=== PATIENT | female | born 1985 | race Caucasian/White ===

== ENCOUNTER 2019-03-22 07:37 | Emergency (ER) | payer OTHER ==
[2019-03-22 08:13] LABS: BILIRUBIN,URINE NEGATIVE (NEGATIVE); GLUCOSE, URINE (UA) NEGATIVE (NEGATIVE); KETONES,URINE (UA) NEGATIVE (NEGATIVE); LEUKOCYTE ESTERASE, URINE SMALL (NEGATIVE); NITRITE,URINE NEGATIVE (NEGATIVE); OCCULT BLOOD,URINE NEGATIVE (NEGATIVE); PH,URINE 6.5 PH (5.0-7.5); PROTEIN,URINE NEGATIVE (NEGATIVE); UROBILINOGEN,URINE 0.2 (NORMAL) E.U./dL (NORMAL)
[2019-03-22 08:14] LABS: CLARITY,URINE CLEAR (CLEAR); HCG UR QUAL NEGATIVE
[2019-03-22 08:27] LABS: BASOPHILS % (AUTO) 0.7 %; EOSINOPHILS # (AUTO) 0.1 10^3/uL (0.0-0.7); EOSINOPHILS % (AUTO) 1.2 %; HGB - HEMOGLOBIN 14.5 g/dL (12.0-16.0); LYMPHOCYTES # (AUTO) 1.9 10^3/uL (1.5-3.5); LYMPHOCYTES % (AUTO) 31.2 %; MEAN CORPUSCULAR HGB CONC 33.1 g/dL (32.0-36.0); MEAN CORPUSCULAR VOLUME 90.5 fL (81.0-99.0); MEAN PLATELET VOLUME 9.2 fL (7.9-10.8); MONOCYTES # (AUTO) 0.3 10^3/uL (0.0-1.0); MONOCYTES % (AUTO) 5.5 %; NEUTROPHILS # (AUTO) 3.7 10^3/uL (1.5-6.6); NEUTROPHILS % (AUTO) 61.2 %; PLT - PLATELET COUNT 243 10^3/uL (130-450); RED BLOOD COUNT 4.84 10^6/uL (4.20-5.40); RED CELL DISTRIBUTION WIDTH 12.6 % (12.0-15.0)
[2019-03-22 08:28] LABS: ALBUMIN 4.2 g/dL (3.2-5.5); ALBUMIN/GLOBULIN RATIO 1.4 (1.0-2.2); BILIRUBIN,TOTAL 0.6 mg/dL (0.2-1.0); CALCIUM 8.7 mg/dL (8.5-10.3); CREATININE 0.8 mg/dL (0.4-1.0); TOTAL PROTEIN 7.3 g/dL (6.7-8.2)
[2019-03-22 08:31] LABS: BACTERIA,URINE Few /HPF (None Seen); RBC,URINE 0-5 /HPF (0-5); SQUAMOUS EPITHELIAL CELL,UR MOD Squamous (<= Few)
--- NOTE | 2019-03-22 08:50 | ED Physician Documentation ---
PD HPI ABD PAIN - Stated complaint Stated Complaint: BACK/ABD PX - Chief complaint Chief Complaint: Abd Pain - History obtained from History obtained from: Patient - History of Present Illness Timing - onset: How many hours ago (2-3), Today Timing - duration: Hours (2-3) Timing - details: Abrupt onset, Still present Quality: Cramping, Aching, Pain Location: RLQ Radiation: Right flank Improved by: No: Eating, Laying still, Position Worsened by: Moving. No: Eating, Breathing, Palpation Associated symptoms: Nausea. No: Fever, Vomiting, Diarrhea, Dysuria, Vaginal bleeding Similar symptoms before: Has not had sx before Recently seen: Not recently seen Review of Systems Constitutional: denies: Fever, Chills, Myalgias Nose: denies: Rhinorrhea / runny nose, Congestion Throat: denies: Sore throat Respiratory: denies: Cough GI: reports: Nausea. denies: Vomiting, Diarrhea Musculoskeletal: reports: Back pain. 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 - Present Medications Home Medications: Ambulatory Orders Medication Instructions Recorded Confirmed Levothyroxine [Synthroid] 125 mcg PO QDAC 03/22/19 03/22/19 Ondansetron Odt [Zofran] 4 mg TL Q6H PRN #15 tablet 03/22/19 Oxycodone HCl/Acetaminophen 1 - 2 each PO Q6H PRN #25 tablet 03/22/19 [Percocet 5-325 mg Tablet] Tamsulosin [Flomax] 0.4 mg PO DAILY #5 capsule 03/22/19 dexAMETHasone [Decadron] 4 mg PO DAILY #5 tablet 03/22/19 - Allergies Allergies/Adverse Reactions: Allergies Allergy/AdvReac Type Severity Reaction Status Date / Time No Known Drug Allergies Allergy Verified 03/22/19 07:49 PD ED PE NORMAL - Vitals Vital signs reviewed: Yes - General General: Alert and oriented X 3, Well developed/nourished, Other (appears in considerable pain. Lying on side. ) - Neck Neck: Supple, no meningeal sign, No adenopathy - Cardiac Cardiac: RRR, No murmur - Respiratory Respiratory: Clear bilaterally - Abdomen Abdomen: Normal bowel sounds, Soft, Non distended, No organomegaly, Other (tender lower abd right side with right CVA tenderness as well. ) - Female Female : Deferred - Rectal Rectal: Deferred - Back Back: No spinal TTP - Derm Derm: Normal color, Warm and dry - Extremities Extremities: No tenderness to palpate, Normal ROM s pain, No edema, No calf tenderness / cord - Neuro Neuro: Alert and oriented X 3, No motor deficit, Normal speech Results - Vitals Vitals: Vital Signs - 24 hr 03/22/19 03/22/19 03/22/19 07:47 09:49 11:25 Temperature 36.3 C L Heart Rate 76 57 L 72 Respiratory 20 16 18 Rate Blood Pressure 109/90 H 104/63 105/68 O2 Saturation 100 100 100 Oxygen O2 Source Room air - Labs Labs: Laboratory Tests 03/22/19 03/22/19 03/22/19 08:00 08:10 08:10 WBC 6.0 RBC 4.84 Hgb 14.5 Hct 43.8 MCV 90.5 MCH 30.0 MCHC 33.1 RDW 12.6 Plt Count 243 MPV 9.2 Neut # (Auto) 3.7 Lymph # (Auto) 1.9 [place] # (Auto) 0.3 Eos # (Auto) 0.1 Baso # (Auto) 0.0 Absolute Nucleated RBC 0.00 Nucleated RBC % 0.0 Sodium 139 Potassium 3.9 Chloride 106 Carbon Dioxide 26 Anion Gap 7.0 BUN 13 Creatinine 0.8 Estimated GFR (MDRD) 83 L Glucose 101 H Calcium 8.7 Total Bilirubin 0.6 AST 17 ALT 18 Alkaline Phosphatase 52 Total Protein 7.3 Albumin 4.2 Globulin 3.1 Albumin/Globulin Ratio 1.4 Lipase 40 Urine Color YELLOW Urine Clarity CLEAR Urine pH 6.5 Ur Specific [place] 1.020 Urine Protein NEGATIVE Urine Glucose (UA) NEGATIVE Urine Ketones NEGATIVE Urine Occult Blood NEGATIVE Urine Nitrite NEGATIVE Urine Bilirubin NEGATIVE Urine Urobilinogen 0.2 (NORMAL) Ur Leukocyte Esterase SMALL H Urine RBC 0-5 Urine WBC 0-3 Ur Squamous Epith Cells MOD Squamous H Urine Bacteria Few Ur Microscopic Review INDICATED Urine Culture Comments NOT INDICATED Urine HCG, Qual NEGATIVE - Rads (name of study) KUB CT Radiology: Prelim report reviewed (4 mm stone at UVJ with mild/mod hydronephrosis. ), See rad report PD MEDICAL DECISION MAKING - ED course Complexity details: re-evaluated patient (much improved with IV fluids and meds. ), considered differential (kidney stone vs ovarian cyst or torsion, or free fluid. Can get labs and CT. ), d/w patient Departure - Departure Disposition: 01 Home, Self Care Clinical Impression: Ureterolithiasis Condition: Stable Record reviewed to determine appropriate education?: Yes Instructions: ED Stone Renal W Colic Follow-Up: VITA WATSON [Primary Care Provider] - Vern Arrieta MD [Provider Admit Priv/Credential] - Prescriptions: dexAMETHasone [Decadron] 4 mg PO DAILY #5 tablet Ondansetron Odt [Zofran] 4 mg TL Q6H PRN #15 tablet PRN Reason: Nausea / Vomiting Oxycodone HCl/Acetaminophen [Percocet 5-325 mg Tablet] 1 - 2 each PO Q6H PRN #25 tablet PRN Reason: pain Tamsulosin [Flomax] 0.4 mg PO DAILY #5 capsule Comments: Stay well-hydrated. Rest today. Activity as tolerated. Anti-inflammatories such as naproxen or ibuprofen 2-3 times daily. Decadron steroid for inflammation as well daily for the next several days. Tamsulosin it tries to reduce the spasm of the ureter and promote better passage of the stone. Add Tylenol or Percocet as needed for pains. Follow-up with your primary care or Urology if not improved well over the next few days. Return to the ER if severe pain again despite medication. Discharge Date/Time: 03/22/19 12:05
[2019-03-22] MEDS ORDERED: SODIUM CHLORIDE 0.9% 1,000 ML IV ONE (09:03)
[2019-03-22] MEDS ORDERED: ONDANSETRON 4 MG/2 ML VIAL IVP STA (09:03)
[2019-03-22] MEDS ORDERED: KETOROLAC 15 MG/ML VIAL IVP STA (09:03)
[2019-03-22] MEDS ORDERED: HYDROmorphone 1 MG/ML CARPUJECT IVP STA (09:03)
--- NOTE | 2019-03-22 10:09 | CT Report ---
Reason: Abrupt right flank to right lower AP, this morning Procedure Date: 03/22/2019 Accession Number: [id number] / [id number] Procedure: CT - Abdomen/Pelvis WO CPT Code: FULL RESULT: EXAM: CT ABDOMEN AND PELVIS (CT KUB) EXAM DATE: 03/22/2019 09:38 AM. CLINICAL HISTORY: Abrupt right flank to right lower AP this morning. COMPARISONS: None. TECHNIQUE: Routine axial helical CT imaging was performed through the abdomen and pelvis without IV contrast. Reconstructions: Coronal and sagittal. In accordance with CT protocol optimization, one or more of the following dose reduction techniques were utilized for this exam: automated exposure control, adjustment of mA and/or KV based on patient size, or use of iterative reconstructive technique. FINDINGS: Lung Bases: Unremarkable. Right Kidney/Ureter: No nephrolithiasis, hydronephrosis, or hydroureter. No perinephric fat stranding. There is a 3 mm calculus at or adjacent to the right UVJ. No phleboliths are identified elsewhere within the pelvis. Left Kidney/Ureter: No stones, hydronephrosis, or hydroureter. No perinephric fat stranding. Other Solid Organs: Noncontrast images of the solid organs are grossly unremarkable. Gallbladder/Bile Ducts: Unremarkable. Peritoneal Cavity: No free fluid, free air or lesley adenopathy. Bowel is grossly unremarkable. Pelvic Organs: No bladder stones or wall thickening. Noncontrast images of the visualized pelvic organs are unremarkable. Vasculature: Unremarkable. Other: None. IMPRESSION: 3 mm calculus at or adjacent to the right UVJ. No hydronephrosis or urinary collecting system calculi detected elsewhere. RADIA
[2019-03-22] MEDS ORDERED: LIDOCAINE-MPF 2% 4 ML in SODIUM CHLORIDE 0.9% 50 ML IV STA (10:27)
[2019-03-22 11:31] VITALS: BP 105/68
== END 2019-03-22 12:05 | disposition home or self-care (01) ==
LOC: ED 07:37
DX: N20.1 Calculus of ureter (principal)
CPT/HCPCS: 36415; 74176; 80053; 81001; 81025; 83690; 85025; 96361; 96365; 96375; 99284; J1170; J7040; 81003; 87086

== ENCOUNTER 2019-04-13 03:44 | Emergency (ER) | payer OTHER ==
[2019-04-13 03:56] VITALS: BP 126/88
--- NOTE | 2019-04-13 04:00 | ED Physician Documentation ---
PD HPI URI - Stated complaint Stated Complaint: SWOLLEN THROAT - Chief complaint Chief Complaint: Heent - History obtained from History obtained from: Patient - History of Present Illness Timing - onset: Yesterday Timing duration: Days (1) Associated symptoms: Fever, Sore throat, Swollen nodes. No: Nasal congestion, Dry cough, Dyspnea (feeling of unable to swallow and is spitting up saliva, but no dyspnea.) Contributing factors: No: Immunocompromised Similar symptoms before: Diagnosis (strep tonsillitis in the past, with similar. 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 - Past Surgical History Past Surgical History: No - Present Medications Home Medications: Ambulatory Orders Medication Instructions Recorded Confirmed Levothyroxine [Synthroid] 125 mcg PO QDAC 03/22/19 03/22/19 Ondansetron Odt [Zofran] 4 mg TL Q6H PRN #15 tablet 03/22/19 Oxycodone HCl/Acetaminophen 1 - 2 each PO Q6H PRN #25 tablet 03/22/19 [Percocet 5-325 mg Tablet] Tamsulosin [Flomax] 0.4 mg PO DAILY #5 capsule 03/22/19 dexAMETHasone [Decadron] 4 mg PO DAILY #5 tablet 03/22/19 Cephalexin [Keflex] 500 mg PO Q6H #28 capsule 04/13/19 Diphenhydramine HCl [Allergy 12.5 mg PO Q6H PRN #120 ml 04/13/19 Relief] Hydrocodone/Acetaminophen [[place] 1 each PO Q6H PRN #15 tablet 04/13/19 5-325 Tablet] dexAMETHasone [Decadron] 4 mg PO DAILY #5 tablet 04/13/19 - Allergies Allergies/Adverse Reactions: Allergies Allergy/AdvReac Type Severity Reaction Status Date / Time No Known Drug Allergies Allergy Verified 04/13/19 03:56 - Social History Does the pt smoke?: No Smoking Status: Never smoker Does the pt drink ETOH?: No Does the pt have substance abuse?: No - Immunizations Immunizations are current?: Yes PD ED PE NORMAL - Vitals Vital signs reviewed: Yes - General General: Alert and oriented X 3, Well developed/nourished, Other (appears uncomfortable and hurts with swallowing. Is spitting up saliva at times rather t arevalo swallowing. Able to talk without distorted voice. ) - HEENT HEENT: Ears normal, Moist mucous membranes. No: Pharynx benign (exudative tonsils with enlargement. No peritonsillar swelling nor uvular deviation nor edema. ) - Neck Neck: Supple, no meningeal sign, Other (anterior adenopathy, tender. ) - Cardiac Cardiac: RRR, No murmur - Respiratory Respiratory: Clear bilaterally - Derm Derm: Normal color, Warm and dry Results - Vitals Vitals: Oxygen O2 Source Room air PD MEDICAL DECISION MAKING - ED course Complexity details: re-evaluated patient (seems pain related spitting up and not due to peritonsillar edema. ), considered differential (Her tonsils are enlarged with some exudate but show proper position. There is no peritonsillar edema no uvular deviation noted. She asked however like some peritonsillitis based on symptoms and spitting up of some sputum. However that may be just be discomfort. We will treat her as likely bacterial infection.), d/w patient Departure - Departure Disposition: 01 Home, Self Care Clinical Impression: Throat pain in adult, Exudative tonsillitis Condition: Stable Record reviewed to determine appropriate education?: Yes Instructions: ED Strep Pharyngitis Poss Follow-Up: VITA WATSON [Primary Care Provider] - Prescriptions: Cephalexin [Keflex] 500 mg PO Q6H #28 capsule dexAMETHasone [Decadron] 4 mg PO DAILY #5 tablet Diphenhydramine HCl [Allergy Relief] 12.5 mg PO Q6H PRN #120 ml PRN Reason: Allergy Symptoms Hydrocodone/Acetaminophen [[place] 5-325 Tablet] 1 each PO Q6H PRN #15 tablet PRN Reason: Pain Comments: This looks like a bacterial tonsil infection. I do not see any signs of swelling in the tissue around the tonsils. You have cephalexin 4 times a day for a week for the infection. Decadron steroid daily for 5 days for the inflammation. Tylenol or ibuprofen if needed for pains and fevers. Add hydrocodone if needed for worse pain. Benadryl liquid 1 to 2 teaspoons swallo wed slowly can try to help with the throat discomfort as well. I would anticipate improvement through the rest of the morning until lunchtime from the initial effect of the steroid and antibiotics. However will likely be a few days before you are mostly better and even possibly a week for complete improvement. You should be off work for at least 24 hours on the antibiotics. Resume work then tomorrow if you are feeling well enough. Forms: Activity restrictions Discharge Date/Time: 04/13/19 04:43
[2019-04-13] MEDS ORDERED: HYDROcod/ACET 5/325 Prepack 4 PO STA (04:11)
[2019-04-13] MEDS ORDERED: ACETAMINOPHEN 325 MG TABLET PO STA (04:11)
[2019-04-13] MEDS ORDERED: cephALEXin 250 MG CAPSULE PO STA (04:11)
[2019-04-13] MEDS ORDERED: diphenhydrAMINE ELIXIR 25 MG/10 ML UDC PO STA (04:11)
[2019-04-13] MEDS ORDERED: DEXAMETHASONE 10 MG/ML VIAL PO STA (04:11)
[2019-04-13] MEDS ORDERED: CHERRY SYRUP 10 ML UDC PO ONE (04:11)
[2019-04-13] MEDS ORDERED: LIDOCAINE VISCOUS 2% 15 ML UDC MM STA (04:11)
== END 2019-04-13 04:43 | disposition home or self-care (01) ==
LOC: ED 03:44
DX: J03.90 Acute tonsillitis, unspecified (principal)
CPT/HCPCS: 99283; A9270

== ENCOUNTER 2019-06-24 11:04 | Outpatient (CLI) | payer OTHER ==
[2019-06-24 18:22] LABS: BASOPHILS % (AUTO) 0.4 %; EOSINOPHILS # (AUTO) 0.1 10^3/uL (0.0-0.7); EOSINOPHILS % (AUTO) 1.4 %; LYMPHOCYTES # (AUTO) 1.8 10^3/uL (1.5-3.5); LYMPHOCYTES % (AUTO) 35.1 %; MEAN CORPUSCULAR HEMOGLOBIN 30.1 pg (27.0-31.0); MEAN CORPUSCULAR HGB CONC 32.2 g/dL (32.0-36.0); MEAN CORPUSCULAR VOLUME 93.5 fL (81.0-99.0); MEAN PLATELET VOLUME 9.6 fL (7.9-10.8); MONOCYTES # (AUTO) 0.3 10^3/uL (0.0-1.0); MONOCYTES % (AUTO) 5.8 %; NEUTROPHILS # (AUTO) 2.9 10^3/uL (1.5-6.6); NEUTROPHILS % (AUTO) 57.1 %; PLT - PLATELET COUNT 243 10^3/uL (130-450); RED BLOOD COUNT 4.65 10^6/uL (4.20-5.40); RED CELL DISTRIBUTION WIDTH 12.7 % (12.0-15.0)
[2019-06-24 18:49] LABS: ALBUMIN 4.1 g/dL (3.2-5.5); ALBUMIN/GLOBULIN RATIO 1.6 (1.0-2.2); BILIRUBIN,TOTAL 0.5 mg/dL (0.2-1.0); CALCIUM 8.7 mg/dL (8.5-10.3); CREATININE 0.8 mg/dL (0.4-1.0); TOTAL PROTEIN 6.6 g/dL (6.7-8.2)
== END 2019-06-24 23:59 | disposition home or self-care (01) ==
LOC: LAB.WCP 11:04
PROVIDERS: ATTEND Nurse Practitioner Family
DX: E03.9 Hypothyroidism, unspecified (principal)
CPT/HCPCS: 36415; 80053; 84443; 85025

== ENCOUNTER 2019-08-30 12:09 | Outpatient (CLI) | payer OTHER | END 2019-08-30 23:59 | disposition home or self-care (01) | LOC: LAB.WCP 12:09 | PROVIDERS: ATTEND Nurse Practitioner Family | DX: R53.83 Other fatigue (principal) | CPT/HCPCS: 36415; 84443 ==

== ENCOUNTER 2019-10-22 00:15 | Emergency (ER) | payer OTHER ==
--- NOTE | 2019-10-22 02:12 | ED Physician Documentation ---
PD HPI CHEST PAIN - Stated complaint Stated Complaint: CP/SOA - Chief complaint Chief Complaint: Cardiac - History obtained from History obtained from: Patient - History of Present Illness Timing - onset: Other ("sick" since 09/02 but worse past few days with pleuritic, sharp chest pain) Timing - details: Gradual onset Quality: Sharp Location: Substernal, Left chest Radiation: Other (does not radiate) Improved by: Nothing Worsened by: Exertion, Inspiration Associated symptoms: Shortness of air. No: Diaphoresis, Nausea, Vomiting, Palpitations, Cough Similar symptoms before: Has not had sx before Recently seen: Other (had recent video/phone appointment with PMD) - Additional information Additional information: c/o feeling "sick" (per patient) since September 02, with symptoms of chest heaviness and intermittent shortness of breath. She developed episodic sharp, pleuritic chest pain a few days ago. She denies fever, denies cough. she was prescribed an inhaler recently by PMD but has had little relief with this. Review of Systems Constitutional: reports: Fatigue. denies: Fever, Chills, Myalgias, Sweats Cardiac: reports: Chest pain / pressure. denies: Palpitations, Pedal edema, Calf pain Respiratory: reports: Dyspnea. 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 - Past Surgical History Past Surgical History: No - Present Medications Home Medications: Ambulatory Orders Medication Instructions Recorded Confirmed Levothyroxine [Synthroid] 125 mcg PO QDAC 03/22/19 03/22/19 Ondansetron Odt [Zofran] 4 mg TL Q6H PRN #15 tablet 03/22/19 Oxycodone HCl/Acetaminophen 1 - 2 each PO Q6H PRN #25 tablet 03/22/19 [Percocet 5-325 mg Tablet] Tamsulosin [Flomax] 0.4 mg PO DAILY #5 capsule 03/22/19 dexAMETHasone [Decadron] 4 mg PO DAILY #5 tablet 03/22/19 Cephalexin [Keflex] 500 mg PO Q6H #28 capsule 04/13/19 Diphenhydramine HCl [Allergy 12.5 mg PO Q6H PRN #120 ml 04/13/19 Relief] Hydrocodone/Acetaminophen [[place] 1 each PO Q6H PRN #15 tablet 04/13/19 5-325 Tablet] dexAMETHasone [Decadron] 4 mg PO DAILY #5 tablet 04/13/19 - Allergies Allergies/Adverse Reactions: Allergies Allergy/AdvReac Type Severity Reaction Status Date / Time No Known Drug Allergies Allergy Verified 10/22/19 00:24 - Social History Does the pt smoke?: No Smoking Status: Never smoker Does the pt drink ETOH?: Yes ETOH Use: Wine Does the pt have substance abuse?: No - Immunizations Immunizations are current?: Yes - POLST Patient has POLST: No PD ED PE NORMAL - Vitals Vital signs reviewed: Yes - General General: Alert and oriented X 3, No acute distress, Well developed/nourished - HEENT HEENT: Moist mucous membranes, Pharynx benign - Neck Neck: Supple, no meningeal sign - Cardiac Cardiac: RRR, No murmur, No gallop, No rub - Respiratory Respiratory: No respiratory distress, Clear bilaterally - Abdomen Abdomen: Soft, Non tender - Derm Derm: Normal color, Warm and dry - Extremities Extremities: No edema Results - Vitals Vitals: Oxygen O2 Source Room air - EKG (time done) No standard instances Rate: Rate (enter#) (83) Rhythm: NSR, SVT Intervals: Normal [place] QRS: Normal Ischemia: Normal ST segments - Labs Labs: Laboratory Tests 10/22/19 10/22/19 10/22/19 02:30 02:30 02:30 WBC 7.8 RBC 4.74 Hgb 14.2 Hct 42.4 MCV 89.5 MCH 30.0 MCHC 33.5 RDW 13.2 Plt Count 268 MPV 9.2 Neut # (Auto) 4.9 Lymph # (Auto) 2.3 [place] # (Auto) 0.5 Eos # (Auto) 0.1 Baso # (Auto) 0.0 Absolute Nucleated RBC 0.00 Nucleated RBC % 0.0 D-Dimer Sodium 137 Potassium 3.7 Chloride 106 Carbon Dioxide 22 Anion Gap 9.0 BUN 13 Creatinine 0.9 Estimated GFR (MDRD) 72 L Glucose 102 H Calcium 9.2 Total Bilirubin 0.6 AST 17 ALT 19 Alkaline Phosphatase 50 Troponin I High Sens < 2.3 L Total Protein 7.2 Albumin 4.2 Globulin 3.0 Albumin/Globulin Ratio 1.4 Lipase 37 10/22/19 02:30 WBC RBC Hgb Hct MCV MCH MCHC RDW Plt Count MPV Neut # (Auto) Lymph # (Auto) [place] # (Auto) Eos # (Auto) Baso # (Auto) Absolute Nucleated RBC Nucleated RBC % D-Dimer < 200.0 L Sodium Potassium Chloride Carbon Dioxide Anion Gap BUN Creatinine Estimated GFR (MDRD) Glucose Calcium Total Bilirubin AST ALT Alkaline Phosphatase Troponin I High Sens Total Protein Albumin Globulin Albumin/Globulin Ratio Lipase - Rads (name of study) chest xray Radiology: Prelim report reviewed, See rad report PD MEDICAL DECISION MAKING - ED course Complexity details: reviewed results, re-evaluated patient, considered differential, d/w patient Departure - Departure Disposition: 01 Home, Self Care Clinical Impression: Chest pain Condition: Good Instructions: ED Chest Pain Atypical Unkn Cause Discharge Date/Time: 10/22/19 04:32
[2019-10-22 02:42] LABS: BASOPHILS % (AUTO) 0.4 %; EOSINOPHILS # (AUTO) 0.1 10^3/uL (0.0-0.7); EOSINOPHILS % (AUTO) 0.9 %; HGB - HEMOGLOBIN 14.2 g/dL (12.0-16.0); LYMPHOCYTES # (AUTO) 2.3 10^3/uL (1.5-3.5); LYMPHOCYTES % (AUTO) 29.9 %; MEAN CORPUSCULAR HGB CONC 33.5 g/dL (32.0-36.0); MEAN CORPUSCULAR VOLUME 89.5 fL (81.0-99.0); MEAN PLATELET VOLUME 9.2 fL (7.9-10.8); MONOCYTES # (AUTO) 0.5 10^3/uL (0.0-1.0); MONOCYTES % (AUTO) 5.8 %; NEUTROPHILS # (AUTO) 4.9 10^3/uL (1.5-6.6); NEUTROPHILS % (AUTO) 62.7 %; PLT - PLATELET COUNT 268 10^3/uL (130-450); RED BLOOD COUNT 4.74 10^6/uL (4.20-5.40); RED CELL DISTRIBUTION WIDTH 13.2 % (12.0-15.0); WHITE BLOOD COUNT 7.8 x10^3/uL (4.8-10.8)
[2019-10-22 02:56] LABS: ALBUMIN 4.2 g/dL (3.2-5.5); ALBUMIN/GLOBULIN RATIO 1.4 (1.0-2.2); BILIRUBIN,TOTAL 0.6 mg/dL (0.2-1.0); CALCIUM 9.2 mg/dL (8.5-10.3); CREATININE 0.9 mg/dL (0.4-1.0); TOTAL PROTEIN 7.2 g/dL (6.7-8.2)
--- NOTE | 2019-10-22 03:44 | XRAY Report ---
Reason: chest pain,dyspnea Procedure Date: 10/22/2019 Accession Number: [id number] / [id number] Procedure: XR - Chest 2 View X-Ray CPT Code: 02669 Final Report FULL RESULT: EXAM: CHEST RADIOGRAPHY EXAM DATE: 10/22/2019 03:38 AM. CLINICAL HISTORY: Chest pain, dyspnea. COMPARISON: None. TECHNIQUE: 2 views. FINDINGS: Lungs/Pleura: No focal opacities evident. No pleural effusion. No pneumothorax. Normal volumes. Mediastinum: Heart and mediastinal contours are unremarkable. Other: None. IMPRESSION: Normal 2-view chest radiography. RADIA
[2019-10-22 04:30] VITALS: BP 127/99
== END 2019-10-22 04:32 | disposition home or self-care (01) ==
LOC: ED 00:15
DX: R07.9 Chest pain, unspecified (principal)
CPT/HCPCS: 36415; 71046; 80053; 83690; 84484; 85025; 85379; 93005; 99284

== ENCOUNTER 2019-12-10 08:00 | Outpatient (CLI) | payer OTHER ==
[2019-12-11 12:51] LABS: HEPATITIS B SURFACE ANTIGEN NON-REACTIVE (NON-REACTIVE)
== END 2019-12-10 23:59 | disposition home or self-care (01) ==
LOC: LAB.WCP 08:00
PROVIDERS: ATTEND Nurse Practitioner Family
DX: M54.9 Dorsalgia, unspecified (principal); Z78.9 Other specified health status; Z11.1 Encounter for screening for respiratory tuberculosis
CPT/HCPCS: 36415; 81599; 86480; 87086; 87340

== ENCOUNTER 2019-12-10 10:59 | Outpatient (CLI) | payer OTHER | END 2019-12-10 23:59 | disposition home or self-care (01) | LOC: LAB.WCP 10:59 | PROVIDERS: ATTEND Nurse Practitioner Family | DX: M54.9 Dorsalgia, unspecified (principal) | CPT/HCPCS: 87086 ==

== ENCOUNTER 2020-02-24 07:00 | Outpatient (CLI) | payer OTHER | END 2020-02-24 23:59 | disposition home or self-care (01) | LOC: LAB.R 07:00 | PROVIDERS: ATTEND Nurse Practitioner Family | DX: B34.9 Viral infection, unspecified (principal); Z20.828 Contact with and (suspected) exposure to other viral communicable diseases ==

== ENCOUNTER 2020-03-04 11:25 | Outpatient (CLI) | payer OTHER | END 2020-03-04 11:26 | disposition home or self-care (01) | LOC: LAB 11:25 | PROVIDERS: ATTEND Nurse Practitioner Family | DX: J02.9 Acute pharyngitis, unspecified (principal); B34.9 Viral infection, unspecified | CPT/HCPCS: 36415; 86308 ==

== ENCOUNTER 2020-03-23 11:21 | Emergency (ER) | payer OTHER ==
[2020-03-23 11:30] VITALS: BP 129/77
--- NOTE | 2020-03-23 11:44 | ED Physician Documentation ---
PD HPI HEENT - Stated complaint Stated Complaint: SORE THROAT - Chief complaint Chief Complaint: Heent - History obtained from History obtained from: Patient - History of Present Illness Location: Throat Improves: Medication Worsens: Swalllowing Associated symptoms: No: Fever, Congestion, Rhinorrhea, Trismus, Unable to swallow, Swollen nodes, Facial swelling, Headache, Cough - Additional information Additional information: 34 yo F presents w/ sore throat since this AM. Had similar sx a week or two ago but improved. Throat feels swollen, hurts to swallow. No fever, cough, congestion, dyspnea, cp, abd pain, n/v, or rash. Took tylenol this AM w/ some relief. Son at home has similar sx w/ a cough as well and dtr is starting to have a cough. No known covid exposure. 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 - Past Surgical History Past Surgical History: No - Present Medications Home Medications: Ambulatory Orders Medication Instructions Recorded Confirmed Levothyroxine [Synthroid] 125 mcg PO QDAC 03/22/19 03/22/19 Ondansetron Odt [Zofran] 4 mg TL Q6H PRN #15 tablet 03/22/19 Oxycodone HCl/Acetaminophen 1 - 2 each PO Q6H PRN #25 tablet 03/22/19 [Percocet 5-325 mg Tablet] Tamsulosin [Flomax] 0.4 mg PO DAILY #5 capsule 03/22/19 dexAMETHasone [Decadron] 4 mg PO DAILY #5 tablet 03/22/19 Cephalexin [Keflex] 500 mg PO Q6H #28 capsule 04/13/19 Diphenhydramine HCl [Allergy 12.5 mg PO Q6H PRN #120 ml 04/13/19 Relief] Hydrocodone/Acetaminophen [[place] 1 each PO Q6H PRN #15 tablet 04/13/19 5-325 Tablet] dexAMETHasone [Decadron] 4 mg PO DAILY #5 tablet 04/13/19 - Allergies Allergies/Adverse Reactions: Allergies Allergy/AdvReac Type Severity Reaction Status Date / Time No Known Drug Allergies Allergy Verified 03/23/20 11:28 - Social History Does the pt smoke?: No Smoking Status: Never smoker Does the pt drink ETOH?: Yes Does the pt have substance abuse?: No - Immunizations Immunizations are current?: Yes - POLST Patient has POLST: No PD ED PE NORMAL - Vitals Vital signs reviewed: Yes - General General: Alert and oriented X 3, No acute distress, Well developed/nourished - HEENT HEENT: Atraumatic, Moist mucous membranes, Other (pharynx slightly red, uvula midline, no tonsilar swelling or exudate. ) - Neck Neck: Supple, no meningeal sign, No adenopathy, Thyroid normal, No JVD - Cardiac Cardiac: RRR, No murmur, No gallop, No rub - Respiratory Respiratory: No respiratory distress, Clear bilaterally - Neuro Neuro: Alert and oriented X 3 Eye Opening: Spontaneous Motor: Obeys Commands Verbal: Oriented GCS Score: 15 - Psych Psych: Normal mood, Normal affect Results - Vitals Vitals: Vital Signs - 24 hr 03/23/20 11:28 Temperature 36.5 C Heart Rate 90 Respiratory 16 Rate Blood Pressure 129/77 O2 Saturation 100 Oxygen O2 Source Room air - Labs Labs: Laboratory Tests 03/23/20 11:36 Group A Strep Rapid Negative PD MEDICAL DECISION MAKING - ED course Complexity details: reviewed results, re-evaluated patient ED course: Pt presented w/ sore throat, RST is negative and exam c/w viral sore throat. Pt concerned because she had a similar sore throat a week or two ago. I advised to fup w/ PCP if this persists beyond a week. Supportive measures discussed, return precautions reviewed. Departure - Departure Disposition: 01 Home, Self Care Clinical Impression: Sore throat Condition: Good Comments: You presented with a sore throat. Your strep test is negative and your exam is more consistent with a viral sore throat. If you have persistent symptoms, follow up with your primary doctor. You may take warm tea/drinks, ibuprofen, tylenol as needed.
[2020-03-23 12:02] LABS: RAPID STREP SCREEN Negative (Negative)
== END 2020-03-23 12:25 | disposition home or self-care (01) ==
LOC: ED 11:21
DX: J02.9 Acute pharyngitis, unspecified (principal)
CPT/HCPCS: 87070; 87430; 99282; 99283

== ENCOUNTER 2020-06-21 00:12 | Emergency (ER) | payer OTHER ==
[2020-06-21 00:38] VITALS: BP 127/91
[2020-06-21] MEDS ORDERED: ALPRAZolam 0.25 MG TABLET PO STA (00:54)
--- NOTE | 2020-06-21 01:31 | ED Physician Documentation ---
History of Present Illness - Stated complaint Stated Complaint: SOA - Chief complaint Chief Complaint: Resp - History obtained from History obtained from: Patient - Additonal information Additional information: Patient comes emergency department complaining of feeling a slight pressure in her chest and a sense of dyspnea on and off for the last week but especially today. Patient states that her tested positive for Covid, he had that she is concerned about getting constantly exposed to him. She denies any other symptoms of Covid, such as cough, change in smell, fever, chills, sore throat, rhinorrhea, or GI distress. She states she is otherwise fairly healthy, but does have bad seasonal allergies which trigger an asthma-like exacerbation when flaring up. No other complaints at this time. Review of Systems Ten Systems: 10 systems reviewed and negative Constitutional: reports: Reviewed and negative. denies: Fever, Chills Eyes: reports: Reviewed and negative Ears: reports: Reviewed and negative Nose: reports: Reviewed and negative. denies: Rhinorrhea / runny nose Throat: reports: Reviewed and negative Cardiac: reports: Chest pain / pressure Respiratory: reports: Dyspnea. denies: Cough GI: reports: Reviewed and negative. 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 - Past Surgical History Past Surgical History: No - Present Medications Home Medications: Ambulatory Orders Medication Instructions Recorded Confirmed Levothyroxine [Synthroid] 125 mcg PO QDAC 03/22/19 03/22/19 Ondansetron Odt [Zofran] 4 mg TL Q6H PRN #15 tablet 03/22/19 Oxycodone HCl/Acetaminophen 1 - 2 each PO Q6H PRN #25 tablet 03/22/19 [Percocet 5-325 mg Tablet] Tamsulosin [Flomax] 0.4 mg PO DAILY #5 capsule 03/22/19 dexAMETHasone [Decadron] 4 mg PO DAILY #5 tablet 03/22/19 Cephalexin [Keflex] 500 mg PO Q6H #28 capsule 04/13/19 Diphenhydramine HCl [Allergy 12.5 mg PO Q6H PRN #120 ml 04/13/19 Relief] Hydrocodone/Acetaminophen [[place] 1 each PO Q6H PRN #15 tablet 04/13/19 5-325 Tablet] dexAMETHasone [Decadron] 4 mg PO DAILY #5 tablet 04/13/19 - Allergies Allergies/Adverse Reactions: Allergies Allergy/AdvReac Type Severity Reaction Status Date / Time No Known Drug Allergies Allergy Verified 06/21/20 00:38 - Social History Does the pt smoke?: No Smoking Status: Never smoker Does the pt drink ETOH?: Yes Does the pt have substance abuse?: No - Immunizations Immunizations are current?: Yes - POLST Patient has POLST: No PD ED PE NORMAL - Vitals Vital signs reviewed: Yes - General General: Alert and oriented X 3, No acute distress, Well developed/nourished - HEENT HEENT: Atraumatic, PERRL, EOMI, Moist mucous membranes - Neck Neck: Supple, no meningeal sign - Cardiac Cardiac: RRR, No murmur, Strong equal pulses - Respiratory Respiratory: No respiratory distress, Clear bilaterally, Other (Patient speaks easily. She is not tachypneic.) - Abdomen Abdomen: Soft, Non tender, Non distended - Derm Derm: Normal color, Warm and dry, No rash - Extremities Extremities: No deformity, No edema, No calf tenderness / cord - Neuro Neuro: Alert and oriented X 3 - Psych Psych: Normal mood, Normal affect Results - Vitals Vitals: Vital Signs - 24 hr 06/21/20 00:32 Temperature 36.7 C Heart Rate 91 Respiratory 18 Rate Blood Pressure 127/91 H O2 Saturation 100 Oxygen O2 Source Room air - Rads (name of study) cxr Radiology: Final report received, EMP read indepedently, See rad report (neg) PD MEDICAL DECISION MAKING - ED course Complexity details: reviewed results, re-evaluated patient, considered differential, d/w patient ED course: I discussed with the patient that while she is at risk for yuval Covid, given that her spouse has it, she does not display serious symptoms of any kind, and has very little in terms of symptomatology that would indicate even potential for Covid at all. She speaks easily and is not tachypneic. Her oxygen saturation on room air is 100% and she is not tachycardic. Her lungs are clear. I have obtained a chest x-ray which is completely unremarkable. I have swabbed the patient for Covid mainly so that she can know whether she herself has contracted it. However, I have explained to her that even if her test is negative, she will still need to quarantine throughout the duration of her 's illness. The patient states she has been feeling somewhat stressed and anxious and I have given her a dose of Xanax here which seems to have helped her symptoms. We have discussed home management of the symptoms as well as usual indications for return. Departure - Departure Disposition: 01 Home, Self Care Clinical Impression: Dyspnea Qualifiers: Dyspnea type: unspecified Qualified Code(s): R06.00 - Dyspnea, unspecified Condition: Stable Instructions: ED Dyspnea Shortness of Breath Comments: Your respiratory exam is very reassuring tonight. Your oxygen saturation is 100% on room air, your lungs are clear with full air movement throughout your lung wilcox, and your chest x-ray looks good. You do not have any other symptoms of illness, especially of Covid. However, since your is ill with Covid, you have been tested for this. The results should be back within 24 to 48 hours. You will be notified if the test is positive. If negative, you will not be automatically notified, but if you do not hear from the hospital within 48 hours, you should give them a call and arrange to find out your test results. Even if your test is negative, you will need to continue quarantine throughout the duration of your 's illness. Please follow-up with your primary care physician for further concerns. If you develop a fever with severe shortness of breath and cough, you should return to the emergency department. Discharge Date/Time: 06/21/20 01:44
--- NOTE | 2020-06-21 08:02 | XRAY Report ---
PROCEDURE: Chest 1 View X-Ray INDICATIONS: dyspnea, has covid TECHNIQUE: One view of the chest was acquired. COMPARISON: 10/22/2019 FINDINGS: Surgical changes and devices: None. Lungs and pleura: No pleural effusions or pneumothorax. Lungs are clear. Mediastinum: Mediastinal contours appear normal. Heart size is normal. Bones and chest wall: No suspicious bony lesions. Overlying soft tissues appear unremarkable. IMPRESSION: No acute cardiopulmonary disease process. Reviewed by: Ileana Gillespie MD, PhD on 06/21/2020 8:00 AM [facility] Approved by: Ileana Gillespie MD, PhD on 06/21/2020 8:00 AM [facility] Station ID: [id number]
== END 2020-06-21 01:44 | disposition home or self-care (01) ==
LOC: ED 00:12
DX: R06.00 Dyspnea, unspecified (principal); Z20.828 Contact with and (suspected) exposure to other viral communicable diseases; F43.9 Reaction to severe stress, unspecified
CPT/HCPCS: 71045; 87635; 99283; 99284; A9270

== ENCOUNTER 2020-08-28 08:00 | Outpatient (CLI) | payer OTHER ==
[2020-08-28 18:06] LABS: BASOPHILS % (AUTO) 0.5 %; EOSINOPHILS # (AUTO) 0.1 10^3/uL (0.0-0.7); EOSINOPHILS % (AUTO) 0.9 %; HCT - HEMATOCRIT 46.5 % (37.0-47.0); HGB - HEMOGLOBIN 14.5 g/dL (12.0-16.0); LYMPHOCYTES # (AUTO) 2.1 10^3/uL (1.5-3.5); LYMPHOCYTES % (AUTO) 39.1 %; MEAN CORPUSCULAR HEMOGLOBIN 28.9 pg (27.0-31.0); MEAN CORPUSCULAR HGB CONC 31.2 g/dL (32.0-36.0); MEAN CORPUSCULAR VOLUME 92.6 fL (81.0-99.0); MEAN PLATELET VOLUME 9.5 fL (7.9-10.8); MONOCYTES # (AUTO) 0.3 10^3/uL (0.0-1.0); MONOCYTES % (AUTO) 5.7 %; NEUTROPHILS # (AUTO) 2.9 10^3/uL (1.5-6.6); NEUTROPHILS % (AUTO) 53.3 %; PLT - PLATELET COUNT 287 10^3/uL (130-450); RED BLOOD COUNT 5.02 10^6/uL (4.20-5.40); RED CELL DISTRIBUTION WIDTH 13.1 % (12.0-15.0); WHITE BLOOD COUNT 5.5 x10^3/uL (4.8-10.8)
[2020-08-28 18:34] LABS: THYROID STIMULATING HORMONE 1.95 uIU/mL (0.34-5.60)
[2020-08-28 18:35] LABS: FREE T3 3.38 pg/mL (2.5-3.9)
== END 2020-08-28 23:59 | disposition home or self-care (01) ==
LOC: LAB.WCP 08:00
PROVIDERS: ATTEND Nurse Practitioner Family
DX: E03.9 Hypothyroidism, unspecified (principal); R53.83 Other fatigue
CPT/HCPCS: 36415; 82306; 84443; 84481; 85025

== ENCOUNTER 2020-09-28 19:13 | Emergency (ER) | payer OTHER ==
--- NOTE | 2020-09-28 19:58 | XRAY Report ---
PROCEDURE: Ankle 3 View LT INDICATIONS: injury from running TECHNIQUE: 3 views of the ankle were acquired. COMPARISON: None FINDINGS: Bones: No fractures or dislocations. Ankle mortise is normally aligned. No suspicious bony lesions . Soft tissues: No tibiotalar joint effusion. Achilles tendon appears normal. IMPRESSION: No fracture. No osseous lesion. If there are persistent symptoms or continued clinical concern for pa thology, then repeat plain film radiographs (7-10 days) or advanced imaging (CT, MR, bone scan) shoul d be considered for further evaluation. Reviewed by: Ileana Gillespie MD, PhD on 09/28/2020 7:57 PM PDT Approved by: Ileana Gillespie MD, PhD on 09/28/2020 7:57 PM PDT Station ID: [id number]
[2020-09-28] MEDS ORDERED: HYDROcod/ACETAM 5/325 MG TABLET PO STA (20:08)
--- NOTE | 2020-09-28 20:43 | ED Physician Documentation ---
PD HPI LOWER EXT INJURY - Stated complaint Stated Complaint: LT ANKLE PX - Chief complaint Chief Complaint: Trauma Ext - History obtained from History obtained from: Patient - History of Present Illness PD HPI LOW EXT INJURY LOCATION: Left, Ankle, Foot Type of injury: Fall, Twist Where injury occurred: Street - Additional information Additional information: Patient was running today when she injured her left ankle and left foot when it was caught in a grate. Worse with walking, better with rest. She states it inverted and the pain is on the lateral aspect of the ankle and foot. 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 - Past Surgical History Past Surgical History: No - Present Medications Home Medications: Ambulatory Orders Medication Instructions Recorded Confirmed Levothyroxine [Synthroid] 125 mcg PO QDAC 03/22/19 03/22/19 Ondansetron Odt [Zofran] 4 mg TL Q6H PRN #15 tablet 03/22/19 Oxycodone HCl/Acetaminophen 1 - 2 each PO Q6H PRN #25 tablet 03/22/19 [Percocet 5-325 mg Tablet] Tamsulosin [Flomax] 0.4 mg PO DAILY #5 capsule 03/22/19 dexAMETHasone [Decadron] 4 mg PO DAILY #5 tablet 03/22/19 Diphenhydramine HCl [Allergy 12.5 mg PO Q6H PRN #120 ml 04/13/19 Relief] Hydrocodone/Acetaminophen [[place] 1 each PO Q6H PRN #15 tablet 04/13/19 5-325 Tablet] cephALEXin [Keflex] 500 mg PO Q6H #28 capsule 04/13/19 dexAMETHasone [Decadron] 4 mg PO DAILY #5 tablet 04/13/19 Ibuprofen [Motrin] 800 mg PO Q8H PRN #30 tablet 09/28/20 - Allergies Allergies/Adverse Reactions: Allergies Allergy/AdvReac Type Severity Reaction Status Date / Time No Known Drug Allergies Allergy Verified 06/21/20 00:38 - Social History Does the pt smoke?: No Smoking Status: Never smoker Does the pt drink ETOH?: Yes Does the pt have substance abuse?: No - Immunizations Immunizations are current?: Yes - POLST Patient has POLST: No PD ED PE NORMAL - Vitals Vital signs reviewed: Yes - General General: Alert and oriented X 3, No acute distress - HEENT HEENT: Moist mucous membranes - Derm Derm: Warm and dry - Extremities Extremities: Other (L foot and ankle - TTP over the lateral malleolus and base of the 5th MT. NVI. There was normal examination of the foot and ankle. Minimal swelling. No bruising) - Neuro Neuro: Alert and oriented X 3 - Psych Psych: Normal mood, Normal affect Results - Vitals Vitals: Oxygen O2 Source Room air - Rads (name of study) L ankle xray Radiology: Prelim report reviewed, EMP read contemporaneously, See rad report (No acute abnormality) L foot xray Radiology: Prelim report reviewed, EMP read contemporaneously, See rad report (No acute abnormality) PD MEDICAL DECISION MAKING - ED course Complexity details: reviewed results, re-evaluated patient, considered differential, d/w patient ED course: 34-year-old female with a left ankle sprain. Placed in a gel splint for comfort. Given crutches. Pain well controlled. We will have her follow-up with her doctor for further care. Patient counseled regarding signs and symptoms for which I believe and urgent re-evaluation would be necessary. Patient with good understanding of and agreement to plan and is comfortable going home at this time This document was made in part using voice recognition software. While efforts are made to proofread this document, sound alike and grammatical errors may occur. Departure - Departure Disposition: 01 Home, Self Care Clinical Impression: Left ankle sprain Qualifiers: Encounter type: initial encounter Involved ligament of ankle: unspecified ligament Qualified Code(s): S93.402A - Sprain of unspecified ligament of left ankle, initial encounter Condition: Good Instructions: ED Sprain Ankle Follow-Up: your,doctor in 1 week [Other] Prescriptions: Ibuprofen [Motrin] 800 mg PO Q8H PRN #30 tablet PRN Reason: PAIN &/OR FEVER Comments: Follow-up with your doctor for further care. Your x-rays do not show any acute abnormalities. You may bear weight as tolerated. Discharge Date/Time: 09/28/20 21:05
--- NOTE | 2020-09-28 20:49 | XRAY Report ---
PROCEDURE: Foot 3 View LT INDICATIONS: fall, foot pain TECHNIQUE: 3 views of the foot were acquired. COMPARISON: None FINDINGS: Bones: No fractures or dislocations. No suspicious bony lesions. Small plantar calcaneal bone spur. Soft tissues: No tibiotalar joint effusion. Achilles tendon appears normal. IMPRESSION: No fracture. No acute osseous lesion. If there are persistent symptoms or continued clinical concern for pathology, then repeat plain film radiographs (7-10 days) or advanced imaging (CT, MR, bone scan) should be considered for further evaluation. Reviewed by: Ileana Gillespie MD, PhD on 09/28/2020 8:48 PM PDT Approved by: Ileana Gillespie MD, PhD on 09/28/2020 8:48 PM PDT Station ID: [id number]
[2020-09-28 21:04] VITALS: BP 137/78
--- OUTSIDE RECORDS SUMMARY | 2020-10-04 01:21 | EXTERNAL MEDICAL SUMMARY RPT | Continuity of Care Document ---
:1985 Demographics Phone Unavailable Preferred Language Unknown Marital Status Unknown Rastafarian Affiliation Unknown Race Unknown Ethnic Group Unknown Author Organization [facility] Address [address] [phone] Phone Social History date description facility [phone]
== END 2020-09-28 21:05 | disposition home or self-care (01) ==
LOC: ED 19:13
DX: S93.402A Sprain of unspecified ligament of left ankle, initial encounter (principal); X50.1XXA Overexertion from prolonged static or awkward postures, initial encounter; Y93.02 Activity, running; Y92.410 Unspecified street and highway as the place of occurrence of the external cause; M77.32 Calcaneal spur, left foot
CPT/HCPCS: 73610; 73630; 99283; A9270

== ENCOUNTER 2020-10-30 08:00 | Outpatient (CLI) | payer OTHER | END 2020-10-30 23:59 | disposition home or self-care (01) | LOC: LAB.N 08:00 | PROVIDERS: ATTEND Nurse Practitioner | DX: N39.0 Urinary tract infection, site not specified (principal) | CPT/HCPCS: 87086 ==

== ENCOUNTER 2020-11-01 18:28 | Emergency (ER) | payer OTHER ==
[2020-11-01 19:01] LABS: BASOPHILS % (AUTO) 0.4 %; EOSINOPHILS # (AUTO) 0.1 10^3/uL (0.0-0.7); EOSINOPHILS % (AUTO) 0.9 %; HCT - HEMATOCRIT 43.5 % (37.0-47.0); HGB - HEMOGLOBIN 14.9 g/dL (12.0-16.0); LYMPHOCYTES # (AUTO) 2.4 10^3/uL (1.5-3.5); LYMPHOCYTES % (AUTO) 26.4 %; MEAN CORPUSCULAR HEMOGLOBIN 29.4 pg (27.0-31.0); MEAN CORPUSCULAR HGB CONC 34.3 g/dL (32.0-36.0); MEAN PLATELET VOLUME 9.1 fL (7.9-10.8); MONOCYTES # (AUTO) 0.5 10^3/uL (0.0-1.0); NEUTROPHILS # (AUTO) 5.9 10^3/uL (1.5-6.6); NEUTROPHILS % (AUTO) 66.1 %; PLT - PLATELET COUNT 295 10^3/uL (130-450); RED BLOOD COUNT 5.06 10^6/uL (4.20-5.40); RED CELL DISTRIBUTION WIDTH 12.7 % (12.0-15.0); WHITE BLOOD COUNT 8.9 x10^3/uL (4.8-10.8)
[2020-11-01 19:12] LABS: BILIRUBIN,URINE NEGATIVE (NEGATIVE); GLUCOSE, URINE (UA) NEGATIVE (NEGATIVE); KETONES,URINE (UA) NEGATIVE (NEGATIVE); LEUKOCYTE ESTERASE, URINE LARGE (NEGATIVE); NITRITE,URINE NEGATIVE (NEGATIVE); OCCULT BLOOD,URINE TRACE-INTA (NEGATIVE); PROTEIN,URINE NEGATIVE (NEGATIVE); UROBILINOGEN,URINE 0.2 (NORMAL) E.U./dL (NORMAL)
[2020-11-01 19:13] LABS: CLARITY,URINE HAZY (CLEAR)
[2020-11-01 19:19] LABS: ALBUMIN 4.4 g/dL (3.2-5.5); ALBUMIN/GLOBULIN RATIO 1.6 (1.0-2.2); BILIRUBIN,TOTAL 0.5 mg/dL (0.2-1.0); CALCIUM 9.2 mg/dL (8.5-10.3); CREATININE 0.7 mg/dL (0.4-1.0); POTASSIUM 3.7 mmol/L (3.5-5.0); TOTAL PROTEIN 7.1 g/dL (6.7-8.2)
[2020-11-01 19:28] LABS: SQUAMOUS EPITHELIAL CELL,UR MANY Squamous (<= Few); WBC,URINE >25 /HPF (0-5)
[2020-11-01 19:29] LABS: BACTERIA,URINE Moderate /HPF (None Seen)
--- NOTE | 2020-11-01 21:57 | ED Physician Documentation ---
PD HPI FEMALE - Stated complaint Stated Complaint: FEMALE - Chief complaint Chief Complaint: Abd Pain - History obtained from History obtained from: Patient - History of Present Illness Timing - onset: Today Timing - duration: Days (1) Timing - details: Gradual onset Pain level max: 7 Pain level max: 6 Associated symptoms: Pelvic pain (Crampy). 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 She states that this started earlier today. No vaginal bleeding. Recently treated for a UTI and is currently still on antibiotics. Urine culture apparently grew polymicrobial growth. She was told to stop the antibiotics today. Patient is 4 para 3. Has not yet seen an OB. Has a history of irregular menses, unclear when her last menstrual period was. 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 : None HEENT: None Psych: None Musculoskeletal: None Derm: None - Past Surgical History Past Surgical History: Yes HEENT: Tonsil/Adenoidectomy - Present Medications Home Medications: Ambulatory Orders Medication Instructions Recorded Confirmed Levothyroxine [Synthroid] 150 mcg PO QDAC 03/22/19 11/01/20 - Allergies Allergies/Adverse Reactions: Allergies Allergy/AdvReac Type Severity Reaction Status Date / Time No Known Drug Allergies Allergy Verified 11/01/20 18:33 - Social History Does the pt smoke?: No Smoking Status: Never smoker Does the pt drink ETOH?: Yes Does the pt have substance abuse?: No - Immunizations Immunizations are current?: Yes - POLST Patient has POLST: No PD ED PE NORMAL - Vitals Vital signs reviewed: Yes - General General: Alert and oriented X 3, No acute distress - HEENT HEENT: Moist mucous membranes - Neck Neck: Supple, no meningeal sign - Cardiac Cardiac: RRR, Strong equal pulses - Respiratory Respiratory: No respiratory distress, Clear bilaterally - Abdomen Abdomen: Soft, Non distended, Other (Mild tenderness to palpation suprapubic. No peritoneal signs) - Back Back: No CVA TTP - Derm Derm: Warm and dry - Extremities Extremities: No edema, No calf tenderness / cord - Neuro Neuro: Alert and oriented X 3 - Psych Psych: Normal mood, Normal affect Results - Vitals Vitals: Vital Signs - 24 hr 11/01/20 11/01/20 18:33 22:03 Temperature 36.3 C L 37.0 C Heart Rate 83 80 Respiratory 19 18 Rate Blood Pressure 129/82 H 120/74 O2 Saturation 97 100 Oxygen O2 Source Room air - Labs Labs: Laboratory Tests 11/01/20 11/01/20 11/01/20 18:48 18:56 18:56 WBC 8.9 RBC 5.06 Hgb 14.9 Hct 43.5 MCV 86.0 MCH 29.4 MCHC 34.3 RDW 12.7 Plt Count 295 MPV 9.1 Neut # (Auto) 5.9 Lymph # (Auto) 2.4 Grady # (Auto) 0.5 Eos # (Auto) 0.1 Baso # (Auto) 0.0 Absolute Nucleated RBC 0.00 Nucleated RBC % 0.0 Sodium 133 L Potassium 3.7 Chloride 102 Carbon Dioxide 21 Anion Gap 10.0 BUN 13 Creatinine 0.7 Estimated GFR (MDRD) 96 Glucose 100 Calcium 9.2 Total Bilirubin 0.5 AST 15 ALT 17 Alkaline Phosphatase 35 L Total Protein 7.1 Albumin 4.4 Globulin 2.7 Albumin/Globulin Ratio 1.6 Lipase 38 HCG, Quant Urine Color YELLOW Urine Clarity HAZY Urine pH 6.0 Ur Specific [place] 1.025 Urine Protein NEGATIVE Urine Glucose (UA) NEGATIVE Urine Ketones NEGATIVE Urine Occult Blood TRACE-INTA Urine Nitrite NEGATIVE Urine Bilirubin NEGATIVE Urine Urobilinogen 0.2 (NORMAL) Ur Leukocyte Esterase LARGE H Urine RBC 6-10 H Urine WBC >25 H Ur Squamous Epith Cells MANY Squamous H Urine Bacteria Moderate H Ur Microscopic Review INDICATED Urine Culture Comments NOT INDICATED 11/01/20 18:56 WBC RBC Hgb Hct MCV MCH MCHC RDW Plt Count MPV Neut # (Auto) Lymph # (Auto) Grady # (Auto) Eos # (Auto) Baso # (Auto) Absolute Nucleated RBC Nucleated RBC % Sodium Potassium Chloride Carbon Dioxide Anion Gap BUN Creatinine Estimated GFR (MDRD) Glucose Calcium Total Bilirubin AST ALT Alkaline Phosphatase Total Protein Albumin Globulin Albumin/Globulin Ratio Lipase HCG, Quant 67233.00 Urine Color Urine Clarity Urine pH Ur Specific [place] Urine Protein Urine Glucose (UA) Urine Ketones Urine Occult Blood Urine Nitrite Urine Bilirubin Urine Urobilinogen Ur Leukocyte Esterase Urine RBC Urine WBC Ur Squamous Epith Cells Urine Bacteria Ur Microscopic Review Urine Culture Comments - Rads (name of study) OB ultrasound Radiology: Prelim report reviewed, EMP read contemporaneously, See rad report PD MEDICAL DECISION MAKING - ED course Complexity details: reviewed results, re-evaluated patient, considered differential, d/w patient ED course: 34-year-old female with an hCG of nearly 60,000, ultrasound concerning for blighted ovum. Discussed the case with Dr. Zamora, OB on-call who recommends follow-up in the clinic on Friday. There is no ectopic visible on ultrasound today. Patient counseled regarding possible early , ectopic precautions given and most likely blighted ovum. Patient counseled regarding signs and symptoms for which I believe and urgent re-evaluation would be necessary. Patient with good understanding of and agreement to plan and is comfortable going home at this time This document was made in part using voice recognition software. While efforts are made to proofread this document, sound alike and grammatical errors may occur. Pain well controlled with Tylenol. Patient declines any other medication Ultrasound results: 1. Intrauterine gestational sac identified containing yolk sac. No embryonic pole or cardiac activity seen at this time. Recommend follow-up. 2. 2.3 cm chorionic bleed. 3. 2.8 cm probable corpus luteal cyst in the right ovary. Departure - Departure Disposition: 01 Home, Self Care Clinical Impression: Blighted ovum Qualifiers: Weeks of gestation: less than 8 weeks Qualified Code(s): Z3A.01 - Less than 8 weeks gestation of Condition: Good Instructions: Blighted Ovum Follow-Up: BALAJI TURK, MSN, [employer] [Primary Care Provider] - Juliette Zamora MD [Provider Admit Priv/Credential] - 11/03/20 Comments: As we discussed, your findings today likely represent a blighted ovum. It is possible that this is an early and also possible that it could be an ectopic , though none is visible currently. It is important that you follow-up with OB on Friday for repeat evaluation and likely repeat hCG testing. Her hCG is around 60,000 today. Return if you worsen. You can use Tylenol at home for pain. I spoke with Dr. Sera hardwick Discharge Date/Time: 11/01/20 22:03
[2020-11-01 22:04] VITALS: BP 120/74
--- NOTE | 2020-11-02 09:04 | Ultrasound Report ---
PROCEDURE: OB First Trimester w/TV INDICATIONS: + test, unknown age, pelvic cramping OUTSIDE/PRIOR DATING DATA: Last menstrual period (LMP): Not available. LMP-based estimated date of delivery (KATIE): Not available. First dating scan (date and location): This study. Estimated date of delivery (KATIE) from first dating scan: A viable gestation is not yet visualized.. TECHNIQUE: Real-time scanning was performed of the fetus and maternal pelvic organs, with image documentation. Endovaginal scanning was also performed to better visualize the fetus and maternal ovaries. COMPARISON: No prior OB ultrasound. FINDINGS: There is what appears to be a gestational sac within the endometrial space, and what likel y is a yolk sac within. Mean sac diameter is 2.2 cm, which would correlate with a gestational age of 7 weeks 1 day, +/- 7 days, assuming viable gestation. Embryo: pole is not seen. Measurement variability in dating: +/- 4 weeks by LMP, +/- 7 days by mean sac diameter (use before 6 weeks gestation if crown-rump length not able to be measured), +/- 5 days by crown-rump length (6-12 weeks gestation). Maternal organs: Ovaries normal considering presumed status.. IMPRESSION: As discussed above a viable intrauterine gestation is not yet visualized. The mean sac diameter calcu lation would establish current gestational age if viable at 7 weeks 1 day, +/- 7 days. Follow-up koffi elation with quantitative beta hCG over time may be warranted, versus also obtaining a follow-up OB u ltrasound in 7-10 days. Reviewed by: Quinton Ortiz MD on 11/02/2020 9:02 AM PDT Approved by: Quinton Ortiz MD on 11/02/2020 9:02 AM PDT Station ID: [id number]
== END 2020-11-01 22:03 | disposition home or self-care (01) ==
LOC: ED 18:28
DX: O02.0 Blighted ovum and nonhydatidiform mole (principal); E03.9 Hypothyroidism, unspecified
CPT/HCPCS: 36415; 80053; 81001; 81003; 83690; 84702; 85025; 87086; 99284

== ENCOUNTER 2020-11-21 20:36 | Outpatient (CLI) | payer OTHER ==
--- NOTE | 2020-11-22 10:28 | Ultrasound Report ---
PROCEDURE: OB First Trimester w/TV INDICATIONS: THREATENED OUTSIDE/PRIOR DATING DATA: Last menstrual period (LMP): Unknown. LMP-based estimated date of delivery (KATIE): Unknown. First dating scan (date and location): 11/01/2020 [facility]. Estimated date of delivery (KATIE) from first dating scan: Not applicable. TECHNIQUE: Real-time scanning was performed of the fetus and maternal pelvic organs, with image documentation. Endovaginal scanning was also performed to better visualize the fetus and maternal ovaries. COMPARISON: OB ultrasound 11/01/2020 FINDINGS: Embryo: Gestational sac is present measuring 2.5 cm corresponding to 7 weeks 4 days. It is noted ges tational sac dating on 11/01/2020 measured 2.2 cm corresponding to 7 weeks 1 day. The gestational sac i s irregular. There is a focus of echogenic material within the gestational sac, presumed as a p ole without identifiable heart tones. It appears irregular. Measurement variability in dating: +/- 4 weeks by LMP, +/- 7 days by mean sac diameter (use before 6 weeks gestation if crown-rump length not able to be measured), +/- 5 days by crown-rump length (6-12 weeks gestation). Maternal organs: Ovaries are unremarkable. IMPRESSION: 1. Intrauterine irregular gestational sac demonstrating discordant growth compared to prior exam. In addition, echogenic irregular focus is identified within the gestational sac without heart tones pres umed to represent a nonviable pole. The above findings are concordant with preliminary report. Reviewed by: Jessika Mario MD on 11/22/2020 10:26 AM PDT Approved by: Jessika Mario MD on 11/22/2020 10:26 AM PDT Station ID: [id number]
== END 2020-11-21 20:37 | disposition home or self-care (01) ==
LOC: DI 20:36
PROVIDERS: ATTEND Obstetrics & Gynecology
DX: O28.4 Abnormal radiological finding on antenatal screening of mother (principal); Z3A.01 Less than 8 weeks gestation of pregnancy

== ENCOUNTER 2020-11-30 08:00 | Outpatient (CLI) | payer OTHER | END 2020-11-30 23:59 | disposition home or self-care (01) | LOC: LAB.WCP 08:00 | PROVIDERS: ATTEND Obstetrics & Gynecology | DX: O20.0 Threatened abortion (principal) | CPT/HCPCS: 36415; 84702; 86900; 86901 ==

== ENCOUNTER 2020-12-10 15:45 | Outpatient (CLI) | payer OTHER | END 2020-12-10 15:46 | disposition critical access hospital (66) | LOC: EMS 15:45 | DX: O20.9 Hemorrhage in early pregnancy, unspecified (principal); Z3A.12 12 weeks gestation of pregnancy | CPT/HCPCS: A0425; A0427 ==

== ENCOUNTER 2020-12-10 16:04 | Day surgery (SDC) | payer OTHER ==
[2020-12-10] MEDS ORDERED: SODIUM CHLORIDE 0.9% 1,000 ML IV STA (16:10)
--- OUTSIDE RECORDS SUMMARY | 2020-12-10 16:12 | EXTERNAL MEDICAL SUMMARY RPT | Continuity of Care Document ---
:1985 Demographics Phone Unavailable Preferred Language Unknown Marital Status Unknown Restorationism Affiliation Unknown Race Unknown Ethnic Group Unknown Author Organization [facility] Address [address] [phone] Phone Allergies Encounters Medications Problems Results
--- NOTE | 2020-12-10 16:14 | ED Physician Documentation ---
PD HPI FEMALE - Stated complaint Stated Complaint: ABD PX/FEMALE 12 WKS - History obtained from History obtained from: Patient, EMS - History of Present Illness Timing - onset: Today - Additional information Additional information: 35-year-old female presents to the emergency department with vaginal bleeding today. She is a 3, para 2. She states this was complicated by a blighted ovum. Has had decreasing hCG levels. About 45 minutes prior to her arrival she developed abdominal cramping and heavy vaginal bleeding. She went home and the bleeding continued. Called 911. Brought here. Continuing to have heavy bleeding anytime she moves. Nothing makes it better or worse. She states that she does have some abdominal cramping as well. 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 : None HEENT: None Psych: None Musculoskeletal: None Derm: None - Past Surgical History Past Surgical History: Yes HEENT: Tonsil/Adenoidectomy - Present Medications Home Medications: Ambulatory Orders Medication Instructions Recorded Confirmed Levothyroxine Sodium [Synthroid] 150 mcg PO QDAC 12/10/20 12/10/20 - Allergies Allergies/Adverse Reactions: Allergies Allergy/AdvReac Type Severity Reaction Status Date / Time No Known Drug Allergies Allergy Verified 12/10/20 16:36 - Social History Does the pt smoke?: No Smoking Status: Never smoker Does the pt drink ETOH?: Yes Does the pt have substance abuse?: No - Immunizations Immunizations are current?: Yes - POLST Patient has POLST: No PD ED PE NORMAL - Vitals Vital signs reviewed: Yes - General General: Alert and oriented X 3, No acute distress - HEENT HEENT: Moist mucous membranes - Neck Neck: Supple, no meningeal sign - Cardiac Cardiac: RRR - Respiratory Respiratory: No respiratory distress, Clear bilaterally - Abdomen Abdomen: Soft, Non tender, Non distended - Female Female : Pt declined - Derm Derm: Warm and dry - Extremities Extremities: No edema, No calf tenderness / cord - Neuro Neuro: Alert and oriented X 3 Results - Vitals Vitals: Vital Signs - 24 hr 12/10/20 12/10/20 12/10/20 16:32 16:38 17:00 Heart Rate 82 80 81 Respiratory 21 13 19 Rate Blood Pressure 107/65 101/58 L 150/96 H O2 Saturation 100 100 100 12/10/20 17:06 Heart Rate 80 Respiratory 15 Rate Blood Pressure 150/96 H O2 Saturation 100 Oxygen O2 Source Room air - Labs Labs: Laboratory Tests 12/10/20 12/10/20 12/10/20 16:29 16:29 16:29 WBC 7.6 RBC 3.89 L Hgb 11.8 L Hct 35.0 L MCV 90.0 MCH 30.3 MCHC 33.7 RDW 12.7 Plt Count 196 MPV 9.1 Neut # (Auto) 5.6 Lymph # (Auto) 1.5 [place] # (Auto) 0.3 Eos # (Auto) 0.1 Baso # (Auto) 0.0 Absolute Nucleated RBC 0.00 Nucleated RBC % 0.0 Sodium 137 Potassium 3.4 L Chloride 107 Carbon Dioxide 24 Anion Gap 6.0 BUN 10 Creatinine 0.7 Estimated GFR (MDRD) 95 Glucose 114 H Calcium 8.0 L Total Bilirubin 0.4 AST 13 ALT 14 Alkaline Phosphatase 39 L Total Protein 5.8 L Albumin 3.6 Globulin 2.2 Albumin/Globulin Ratio 1.6 Lipase 37 HCG, Quant 2321.00 Blood Type Antibody Screen 12/10/20 16:29 WBC RBC Hgb Hct MCV MCH MCHC RDW Plt Count MPV Neut # (Auto) Lymph # (Auto) [place] # (Auto) Eos # (Auto) Baso # (Auto) Absolute Nucleated RBC Nucleated RBC % Sodium Potassium Chloride Carbon Dioxide Anion Gap BUN Creatinine Estimated GFR (MDRD) Glucose Calcium Total Bilirubin AST ALT Alkaline Phosphatase Total Protein Albumin Globulin Albumin/Globulin Ratio Lipase HCG, Quant Blood Type A POSITIVE Antibody Screen NEGATIVE PD MEDICAL DECISION MAKING - ED course Complexity details: reviewed results, re-evaluated patient, considered differential, d/w patient, d/w senior staff consultant ED course: 35-year-old female with a known blighted ovum. Appears to be miscarrying today. Heavy vaginal bleeding. She has dropped 2 to 3 g of hemoglobin since her last blood draw. Discussed the case with Dr. Wooten, NUCLEAR FUEL ENRICHMENT TECHNICIAN who will come and evaluate the patient. Dr. Wooten will take to the OR for D&C. Departure - Departure Disposition: ED Transfer to [facility] Clinical Impression: Blighted ovum, Miscarriage, Uterine hemorrhage Condition: Stable
[2020-12-10] MEDS ORDERED: ONDANSETRON 4 MG/2 ML VIAL IVP STA (16:18)
[2020-12-10 16:36] LABS: BASOPHILS % (AUTO) 0.4 %; EOSINOPHILS # (AUTO) 0.1 10^3/uL (0.0-0.7); EOSINOPHILS % (AUTO) 0.8 %; HGB - HEMOGLOBIN 11.8 g/dL (12.0-16.0); LYMPHOCYTES # (AUTO) 1.5 10^3/uL (1.5-3.5); LYMPHOCYTES % (AUTO) 19.8 %; MEAN CORPUSCULAR HEMOGLOBIN 30.3 pg (27.0-31.0); MEAN CORPUSCULAR HGB CONC 33.7 g/dL (32.0-36.0); MEAN PLATELET VOLUME 9.1 fL (7.9-10.8); MONOCYTES # (AUTO) 0.3 10^3/uL (0.0-1.0); MONOCYTES % (AUTO) 4.4 %; NEUTROPHILS # (AUTO) 5.6 10^3/uL (1.5-6.6); NEUTROPHILS % (AUTO) 74.3 %; PLT - PLATELET COUNT 196 10^3/uL (130-450); RED BLOOD COUNT 3.89 10^6/uL (4.20-5.40); RED CELL DISTRIBUTION WIDTH 12.7 % (12.0-15.0); WHITE BLOOD COUNT 7.6 x10^3/uL (4.8-10.8)
[2020-12-10 16:54] LABS: ALBUMIN 3.6 g/dL (3.2-5.5); ALBUMIN/GLOBULIN RATIO 1.6 (1.0-2.2); BILIRUBIN,TOTAL 0.4 mg/dL (0.2-1.0); CREATININE 0.7 mg/dL (0.4-1.0); POTASSIUM 3.4 mmol/L (3.5-5.0); TOTAL PROTEIN 5.8 g/dL (6.7-8.2)
[2020-12-10] MEDS ORDERED: DOXYCYCLINE 100 MG TABLET PO STA ×2 (17:07→17:22)
--- OUTSIDE RECORDS SUMMARY | 2020-12-10 17:30 | EXTERNAL MEDICAL SUMMARY RPT | Continuity of Care Document ---
:1985 Demographics Phone Unavailable Preferred Language Unknown Marital Status Unknown Synagogue Affiliation Unknown Race Unknown Ethnic Group Unknown Author Organization [facility] Address [address] [phone] Phone Allergies Encounters Medications Problems Results
[2020-12-10] MEDS ORDERED: LIDOCAINE MPF 2%-EPI 1:200000 20 ML VIAL ONE (17:37)
--- NOTE | 2020-12-10 17:44 | HISTORY & PHYSICAL EXAMINATION ---
HPI - Admitted From Admitted from: ED - History Obtained From Records Reviewed: Old records reviewed History obtained from: Patient, Family Exam limitations: No limitations - History of Present Illness HPI Comment/Other: ID: Patient is a 35 yo with incomplete SAB here with excessive blood loss. HPI: Patient had been followed for incomplete SAB. Underwent a pelvic us on 11/22/20 that showed an irregular gestational sac measuring 7w4d without pole. She had a prior us on 11/02/20 that showed a gestational sac measuring 7w1d without pole. Data supportive of incomplete SAB likely secondary to blighted ovum. [place] [address] [place] [address] on 11/30/20 to 2321 today. She had been showering and started to pass large volumes of blood. Report form EMS was that the floor was puddled with blood. patient was found lying on the floor 2/2 lightheadedness. Had soaked through pads and soaked thorugh her clothing in less than one hour. Passed large clot upon arrival to ED. Currently wearing a peripad for about 40 minutes that is nearly saturated. Confirmed to be Rh positive. 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 : positive: None HEENT: positive: None Psych: positive: None Musculoskeletal: positive: None Derm: positive: None MRSA Hx?: No - Past Surgical History HEENT: positive: Tonsil/Adenoidectomy Social & Family Hx - Social History Does the pt smoke?: No Smoking Status: Never smoker Does the pt drink ETOH?: Yes Does the pt have substance abuse?: No - POLST Patient has POLST: No Meds/Allgy - Home Medications Home Medications: Ambulatory Orders Medication Instructions Recorded Confirmed Acetaminophen [Acetaminophen Extra 1,000 mg PO Q8H PRN #60 tablet 12/10/20 Strength] Docusate Sodium 100Mg Capsule 100 - 200 mg PO BID PRN #60 cap 12/10/20 [Colace 100Mg Capsule] Doxycycline Monohydrate 150 mg PO ONCE #1 cap 12/10/20 Ibuprofen [Motrin] 600 mg PO Q6H PRN #60 tab 12/10/20 Levothyroxine Sodium [Synthroid] 150 mcg PO QDAC 12/10/20 12/10/20 oxyCODONE [Roxicodone] 2.5 - 5 mg PO Q4H PRN #10 tablet 12/10/20 - Allergies Allergies/Adverse Reactions: Allergies Allergy/AdvReac Type Severity Reaction Status Date / Time No Known Drug Allergies Allergy Verified 12/10/20 16:36 Review of Systems - Other Findings Other Findings: As per HPI, otherwise remaining systems are negative. Exam - Vital Signs Reviewed Vital Signs: Yes Vital Signs: Vital Signs x48h Pulse Resp BP Pulse Ox 12/10/20 17:06 80 15 150/96 H 100 12/10/20 17:00 81 19 150/96 H 100 12/10/20 16:38 80 13 101/58 L 100 12/10/20 16:32 82 21 107/65 100 - Physical Exam General Appearance: positive: Moderate distress, Other (Unable to lie in supine position. Lower body covered in dark blood.) Respiratory: positive: No respiratory distress Cardiovascular: positive: Other (RR) Abdomen: positive: Other (mildly tender with some guarding) Skin: positive: Pallor Extremities: positive: No pedal edema Neurologic/Psychiatric: positive: Oriented x3 Results - Lab Results Fish Bones: 12/10/20 16:29 12/10/20 16:29 Other Lab Results: Lab Results x24hrs 12/10/20 12/10/20 12/10/20 Range/Units 16:29 16:29 16:29 WBC (4.8-10.8) x10^3/uL RBC (4.20-5.40) 10^6/uL Hgb (12.0-16.0) g/dL Hct (37.0-47.0) % MCV (81.0-99.0) fL MCH (27.0-31.0) pg MCHC (32.0-36.0) g/dL RDW (12.0-15.0) % Plt Count (130-450) 10^3/uL MPV (7.9-10.8) fL Neut # (Auto) (1.5-6.6) 10^3/uL Lymph # (Auto) (1.5-3.5) 10^3/uL [place] # (Auto) (0.0-1.0) 10^3/uL Eos # (Auto) (0.0-0.7) 10^3/uL Baso # (Auto) (0.0-0.1) 10^3/uL Absolute Nucleated RBC x10^3/uL Nucleated RBC % /100WBC Sodium 137 (135-145) mmol/L Potassium 3.4 L (3.5-5.0) mmol/L Chloride 107 (101-111) mmol/L Carbon Dioxide 24 (21-32) mmol/L Anion Gap 6.0 (6-13) BUN 10 (6-20) mg/dL Creatinine 0.7 (0.4-1.0) mg/dL Estimated GFR (MDRD) 95 (>89) Glucose 114 H (70-100) mg/dL Calcium 8.0 L (8.5-10.3) mg/dL Total Bilirubin 0.4 (0.2-1.0) mg/dL AST 13 (10-42) IU/L ALT 14 (10-60) IU/L Alkaline Phosphatase 39 L (42-121) IU/L Total Protein 5.8 L (6.7-8.2) g/dL Albumin 3.6 (3.2-5.5) g/dL Globulin 2.2 (2.1-4.2) g/dL Albumin/Globulin Ratio 1.6 (1.0-2.2) Lipase 37 (22-51) U/L HCG, Quant 2321.00 mIU/mL Blood Type A POSITIVE Antibody Screen NEGATIVE 12/10/20 Range/Units 16:29 WBC 7.6 (4.8-10.8) x10^3/uL RBC 3.89 L (4.20-5.40) 10^6/uL Hgb 11.8 L (12.0-16.0) g/dL Hct 35.0 L (37.0-47.0) % MCV 90.0 (81.0-99.0) fL MCH 30.3 (27.0-31.0) pg MCHC 33.7 (32.0-36.0) g/dL RDW 12.7 (12.0-15.0) % Plt Count 196 (130-450) 10^3/uL MPV 9.1 (7.9-10.8) fL Neut # (Auto) 5.6 (1.5-6.6) 10^3/uL Lymph # (Auto) 1.5 (1.5-3.5) 10^3/uL [place] # (Auto) 0.3 (0.0-1.0) 10^3/uL Eos # (Auto) 0.1 (0.0-0.7) 10^3/uL Baso # (Auto) 0.0 (0.0-0.1) 10^3/uL Absolute Nucleated RBC 0.00 x10^3/uL Nucleated RBC % 0.0 /100WBC Sodium (135-145) mmol/L Potassium (3.5-5.0) mmol/L Chloride (101-111) mmol/L Carbon Dioxide (21-32) mmol/L Anion Gap (6-13) BUN (6-20) mg/dL Creatinine (0.4-1.0) mg/dL Estimated GFR (MDRD) (>89) Glucose (70-100) mg/dL Calcium (8.5-10.3) mg/dL Total Bilirubin (0.2-1.0) mg/dL AST (10-42) IU/L ALT (10-60) IU/L Alkaline Phosphatase (42-121) IU/L Total Protein (6.7-8.2) g/dL Albumin (3.2-5.5) g/dL Globulin (2.1-4.2) g/dL Albumin/Globulin Ratio (1.0-2.2) Lipase (22-51) U/L HCG, Quant mIU/mL Blood Type Antibody Screen Impression/Plan - Problem List Problem List: Incomplete SAB with hemorrhage Large volume blood loss Proceeding to OR for suction D&C Reviewed risks/benefits/alternatives to suction D&C Risks include, but are not limited to, bleeding, infection, damage to neatby tissue and organs. On average, expected EBL is minimal. In the event of an unanticipated blood loss, patient is willing to undergo transfusion. Risks of blood transfusion include infection as well as transfusion reaction Risk of HIV 1/2million nationwide Risk of Hepatitis 1/1 million Risks of transfusion reaction and mgt reviewed Infection risk low given that no incisions david be made and we will be using physiologic orifices. Will provide doxycycline 200 mg po prior to surgery and an additional pm dose tonight Damage to nearby tissue and organs was reviewed with emphasis on uterine perforation and management, which can include surgical intervention based on bleeding risk. Reviewed management of complications and efforts to avoid such outcomes but reviewed that they may occur despite our best efforts. Patient agreed to the aforementioned procedure and written informed consent was obtained. Reviewed higher than average likelihood of transfusion given baseline blood loss OR team aware
[2020-12-10 17:46] LABS: BILIRUBIN,URINE NEGATIVE (NEGATIVE); GLUCOSE, URINE (UA) NEGATIVE (NEGATIVE); KETONES,URINE (UA) NEGATIVE (NEGATIVE); LEUKOCYTE ESTERASE, URINE TRACE (NEGATIVE); NITRITE,URINE NEGATIVE (NEGATIVE); OCCULT BLOOD,URINE LARGE (NEGATIVE); PH,URINE 7.5 PH (5.0-7.5); PROTEIN,URINE 100 mg/dL (NEGATIVE); UROBILINOGEN,URINE 0.2 (NORMAL) E.U./dL (NORMAL)
--- NOTE | 2020-12-10 17:47 | ANESTHESIA ---
Pre-Anesthesia VS, & Labs - Diagnosis incomplete AB - Procedure d&c Vital Signs: Temp Pulse Resp BP Pulse Ox 80 15 150/96 H 100 12/10/20 17:06 12/10/20 17:06 12/10/20 17:06 12/10/20 17:06 Height: 5 ft 9.5 in Weight (kg): 77.111 kg Body Mass Index: 24.7 BMI Classification: Healthy weight - NPO Last Food Intake: noon - Is Patient ?: No - Lab Results Current Lab Results: Laboratory Tests 12/10/20 16:29: Blood Type A POSITIVE, Antibody Screen NEGATIVE 12/10/20 16:29: HCG, Quant 2321.00 12/10/20 16:29: Sodium 137, Potassium 3.4 L, Chloride 107, Carbon Dioxide 24, Anion Gap 6.0, BUN 10, Creatinine 0.7, Estimated GFR (MDRD) 95, Glucose 114 H, Calcium 8.0 L, Total Bilirubin 0.4, AST 13, ALT 14, Alkaline Phosphatase 39 L, Total Protein 5.8 L, Albumin 3.6, Globulin 2.2, Albumin/Globulin Ratio 1.6, Lipase 37 12/10/20 16:29: WBC 7.6, RBC 3.89 L, Hgb 11.8 L, Hct 35.0 L, MCV 90.0, MCH 30.3, MCHC 33.7, RDW 12.7, Plt Count 196, MPV 9.1, Neut # (Auto) 5.6, Lymph # (Auto) 1.5, [place] # (Auto) 0.3, Eos # (Auto) 0.1, Baso # (Auto) 0.0, Absolute Nucleated RBC 0.00, Nucleated RBC % 0.0 Lab results reviewed: Yes Fish Bones: 12/10/20 16:29 12/10/20 16:29 Home Medications and Allergies Home Medications: Ambulatory Orders Levothyroxine Sodium [Synthroid] 150 mcg PO QDAC 12/10/20 Levothyroxine Sodium [Synthroid] 150 mcg PO QDAC 12/10/20 Allergies/Adverse Reactions: Allergies Allergy/AdvReac Type Severity Reaction Status Date / Time No Known Drug Allergies Allergy Verified 12/10/20 16:36 Anes History & Medical History - Anesthetic History Anesthesia Complications: reports: No previous complications Family history of Anesthesia Complications: Denies Family history of Malignant Hyperthermia: Denies - Medical History Cardiovascular: reports: None Pulmonary: reports: None Gastrointestinal: reports: None Urinary: reports: None Neuro: reports: None Musculoskeletal: reports: None Endocrine/Autoimmune: reports: HyPOthyroidism Blood Disorders: reports: None Skin: reports: None Smoking Status: Never smoker - Surgical History Eyes Ears Nose Throat (EENT): reports: Tonsil/Adenoidectomy Exam General: Alert, Oriented x3 Dental: WNL Mouth Openin Fingerbreadth Neck Mobility: Normal Mallampati classification: II Respiratory: Lungs clear, Normal breath sounds, No respiratory distress Cardiovascular: Regular rate Neurological: Normal speech Mental/Cognitive Status: Alert/Oriented X3, Normal for patient, Lethargic Cognitive Status: Within normal limits Plan Anesthesia Type: Total IV Consent for Procedure(s) Verified and Reviewed: Yes Code Status: Attempt Resuscitation ASA classification: 2-Mild systemic disease Is this case an emergency?: Yes
[2020-12-10 17:48] LABS: CLARITY,URINE BLOODY (CLEAR)
[2020-12-10 17:49] LABS: BACTERIA,URINE None Seen /HPF (None Seen); RBC,URINE TNTC /HPF (0-5); SQUAMOUS EPITHELIAL CELL,UR FEW Squamous (<= Few); WBC,URINE 0-3 /HPF (0-5)
[2020-12-10 18:05] LABS: CORONAVIRUS 229E-RESP PCR NOT DETECTED; CORONAVIRUS HKU1-RESP PCR NOT DETECTED; CORONAVIRUS NL63-RESP PCR NOT DETECTED; CORONAVIRUS OC43-RESP PCR NOT DETECTED; HUMAN METAPNEUMOVIRUS NOT DETECTED; INFLUENZA A- RESP PCR PANEL NOT DETECTED; RHINOVIRUS/ENTEROVIRUS NOT DETECTED; SARS-CoV-2 -RESP PCR PANEL NOT DETECTED
[2020-12-10 18:06] LABS: B. PARAPERTUSSIS- RESP PCR PAN NOT DETECTED; B. PERTUSSIS- RESP PCR PANEL NOT DETECTED; C. PNEUMONIAE- RESP PCR PANEL NOT DETECTED; INFLUENZA B - RESP PCR PANEL NOT DETECTED; M. PNEUMONIAE- RESP PCR PANEL NOT DETECTED; PARAINFLUENZA VIRUS 1 NOT DETECTED; PARAINFLUENZA VIRUS 2 NOT DETECTED; PARAINFLUENZA VIRUS 3 NOT DETECTED; PARAINFLUENZA VIRUS 4 NOT DETECTED; RSV- RESP PCR PANEL NOT DETECTED
[2020-12-10] MEDS ORDERED: fentaNYL 100 MCG/2 ML VIAL IVP PRN (18:29)
[2020-12-10] MEDS ORDERED: METOCLOPRAMIDE 10 MG/2 ML VIAL IVP PRN (18:29)
[2020-12-10] MEDS ORDERED: ePHEDrine 50 MG/ML VIAL IVP PRN (18:29)
[2020-12-10] MEDS ORDERED: ATROPINE ABBOJECT 1 MG/10 ML SYRINGE IVP PRN (18:29)
[2020-12-10] MEDS ORDERED: NALOXONE 0.4 MG/ML VIAL IVP PRN (18:29)
[2020-12-10] MEDS ORDERED: ONDANSETRON 4 MG/2 ML VIAL IVP PRN ×2 (18:29→21:05)
[2020-12-10] MEDS ORDERED: MORPHINE 2 MG/ML CARPUJECT IVP PRN (18:29)
[2020-12-10] MEDS ORDERED: HYDROmorphone 0.5 MG/0.5 ML SYRINGE IVP PRN (18:29)
[2020-12-10] MEDS ORDERED: LIDOCAINE MPF 2%-EPI 1:200000 10 ML VIAL SUBQ ONE (18:40)
[2020-12-10] MEDS ORDERED: miSOPROStoL 200 MCG TABLET ONE (18:45)
[2020-12-10] MEDS ORDERED: SILVER NITRATE APPLICATOR TOP ONE (18:45)
[2020-12-10] MEDS ORDERED: CARBOPROST TROMETHAMINE 250 MCG/ML AMP IM ONE (18:46)
[2020-12-10] MEDS ORDERED: METHYLERGONOVINE 0.2 MG/ML VIAL ONE (18:46)
[2020-12-10] MEDS ORDERED: LACTATED RINGERS 1,000 ML IV ONE (18:56)
[2020-12-10] MEDS ORDERED: LACTATED RINGERS 1,000 ML IV SCH (19:00)
--- NOTE | 2020-12-10 19:06 | OPERATIVE REPORT ---
Operative Report - General Planned Procedure: Suction D&C Pre-Op Diagnosis: Incomplete SAB, hemorrhage Procedure Performed: Suction D&C Post Op Diagnosis: Same - Procedure Note Primary Surgeon: Lisa Goss Anesthesia Provider: Nancy Lorenz CRNA Anesthesia Technique: General mask Pathology: Uterine contents/products of conception IV Fluids (mL): 700 Estimated Blood Loss (mL): 20 Urine Output (mL): 500 Indications: Patient is a 35 yo with incomplete SAB here with excessive blood loss. Patient had been followed for incomplete SAB. Underwent a pelvic us on 11/22/20 that showed an irregular gestational sac measuring 7w4d without pole. She had a prior us on 11/02/20 that showed a gestational sac measuring 7w1d without pole. Data supportive of incomplete SAB likely secondary to blighted ovum. [place] [address]41 [place] [address] on 11/30/20 to 2321 today. She had been showering and started to pass large volumes of blood. Report form EMS was that the floor was puddled with blood. patient was found lying on the floor 2/2 lightheadedness. Had soaked through pads and soaked through her clothing in less than one hour. Passed large clot upon arrival to ED. Currently wearing a peripad for about 40 minutes that is nearly saturated. Confirmed to be Rh positive. Findings: Large amount of clot caked in genital area. Uterus enlarged to about 7-8 weeks, open cervix with active bleeding. Tissue c/w POCs collected. Complications: None - Other Other Information/Narrative: Risks benefits and alternatives to the procedure were reviewed. Consent was again confirmed. Patient was taken to the operating room where she underwent general anesthesia. She was positioned in dorsolithotomy position with legs resting in yellowfin stirrups. She was prepped and draped in the usual sterile fashion. Doxycycline 200 mg po given in Preop. Preoperative checklist was performed. Exam under anesthesia was performed. Speculum was placed in the vagina and the cervix was visualized. Single-tooth tenaculum was placed at the anterior cervical lip. Paracervical block was administered using a total of 20 cc of 2% lidocaine with epinephrine was injected at the 4:00 and 8:00 positions lateral to the portio of the cervix. The cervical os was serially dilated with Hegar dilators to accommodate the caliber of the 7 mm flexible suction catheter. The 7 mm flexible catheter was inserted into the cervical os. Tissue was cleared from cavity in several passes. Gentle sharp curettage was performed to confirm clearance of tissue from the uterine cavity. Single toothed tenaculum was removed and good hemostasis was noted after application of silver nitrate. Methergine 20 mcg IM given to support uterine c ontraction. Procedure was well tolerated and without complication.
[2020-12-10 19:12] LABS: BASOPHILS % (AUTO) 0.3 %; EOSINOPHILS # (AUTO) 0.1 10^3/uL (0.0-0.7); EOSINOPHILS % (AUTO) 0.6 %; HCT - HEMATOCRIT 34.9 % (37.0-47.0); HGB - HEMOGLOBIN 11.6 g/dL (12.0-16.0); LYMPHOCYTES # (AUTO) 2.4 10^3/uL (1.5-3.5); LYMPHOCYTES % (AUTO) 27.8 %; MEAN CORPUSCULAR HEMOGLOBIN 30.1 pg (27.0-31.0); MEAN CORPUSCULAR HGB CONC 33.2 g/dL (32.0-36.0); MEAN CORPUSCULAR VOLUME 90.4 fL (81.0-99.0); MEAN PLATELET VOLUME 9.1 fL (7.9-10.8); MONOCYTES # (AUTO) 0.4 10^3/uL (0.0-1.0); MONOCYTES % (AUTO) 4.3 %; NEUTROPHILS # (AUTO) 5.8 10^3/uL (1.5-6.6); NEUTROPHILS % (AUTO) 66.7 %; PLT - PLATELET COUNT 193 10^3/uL (130-450); RED BLOOD COUNT 3.86 10^6/uL (4.20-5.40); RED CELL DISTRIBUTION WIDTH 12.8 % (12.0-15.0); WHITE BLOOD COUNT 8.7 x10^3/uL (4.8-10.8)
--- NOTE | 2020-12-10 19:38 | ANESTHESIA POST OP EVALUATION ---
Anesthesia Post Eval - Post Anesthesia Eval Vitals: Last Vital Signs Temp 36.6 C 12/10/20 19:30 Pulse 90 12/10/20 19:30 Resp 19 12/10/20 19:30 BP 136/88 H 12/10/20 19:30 Pulse Ox 97 12/10/20 19:30 CV Function Including HR & BP: Stable Pain Control: Satisfactory Nausea & Vomiting: Negative Mental Status: Baseline Respiratory Status: Airway Patent Hydration Status: Satisfactory Anesthesia Complications: None
[2020-12-10] MEDS ORDERED: TRANEXAMIC ACID 1,000 MG in SODIUM CHLORIDE 0.9% 100ML 100 ML IV STA (21:05)
[2020-12-10] MEDS ORDERED: CHERRY SYRUP 10 ML UDC PO ONE (21:12)
[2020-12-10] MEDS ORDERED: ACETAMINOPHEN 500 MG TABLET PO PRN (21:18)
--- NOTE | 2020-12-10 21:22 | PROVIDER PROGRESS NOTE ---
Subjective - Prog Note Date Prog Note Date: 12/10/20 Prog Note Time: 21:19 - Subjective Subjective: Received call that patient continues to have heavy bleeding with nausea and pain. Received methergine 0.2mg IM x1 in OR Will observe overnight VB: Giving misoprostol 600 mcg BC x1 now. TXA 1000 mg IV x1 now Will cont with scheduled methergine 0.2 mg po Q6H overnight CBC at 23:00 T&C for 2 units PRBC FEN: LR at 125 cc/hr PAIN: Oxycodone 5 mg po Q4H prn pain and acetaminophen 1000 mg po Q8H Will add ibuprofen once bleeding stable Objective - Vital Signs/Intake & Output Vital Signs: Vital Signs x48h Temp Pulse Resp BP Pulse Ox 12/10/20 20:59 97.5 F L 73 16 109/58 L 100 12/10/20 20:50 98.2 F 98 18 113/69 99 12/10/20 20:29 98.2 F 73 17 117/83 H 12/10/20 20:14 98.2 F 72 16 104/58 L 100 12/10/20 19:59 98.2 F 74 16 121/79 100 12/10/20 19:45 98.2 F 83 16 125/81 H 100 12/10/20 19:30 97.9 F 90 19 136/88 H 97 12/10/20 19:25 97.9 F 96 25 H 139/90 H 97 12/10/20 19:20 97.9 F 89 20 132/87 H 100 12/10/20 19:15 97.7 F 93 24 123/85 H 100 12/10/20 19:10 97.7 F 95 20 139/96 H 100 12/10/20 19:05 97.7 F 96 19 131/68 H 100 12/10/20 18:56 97.7 F 104 H 16 126/75 100 12/10/20 17:37 84 12 107/70 99 12/10/20 17:06 80 15 150/96 H 100 12/10/20 17:00 81 19 150/96 H 100 12/10/20 16:38 80 13 101/58 L 100 12/10/20 16:32 82 21 107/65 100 Intake & Output: Intake & Output 12/07/20 12/08/20 12/09/2021 23:59 23:59 23:59 23:59 Intake Total 1000 Balance 1000 - Lab Results Fish Bones: 12/10/20 19:08 12/10/20 16:29 Other Labs: Lab Results x24hrs 12/10/20 12/10/20 12/10/20 Range/Units 19:08 17:36 16:57 WBC 8.7 (4.8-10.8) x10^3/uL RBC 3.86 L (4.20-5.40) 10^6/uL Hgb 11.6 L (12.0-16.0) g/dL Hct 34.9 L (37.0-47.0) % MCV 90.4 (81.0-99.0) fL MCH 30.1 (27.0-31.0) pg MCHC 33.2 (32.0-36.0) g/dL RDW 12.8 (12.0-15.0) % Plt Count 193 (130-450) 10^3/uL MPV 9.1 (7.9-10.8) fL Neut # (Auto) 5.8 (1.5-6.6) 10^3/uL Lymph # (Auto) 2.4 (1.5-3.5) 10^3/uL [place] # (Auto) 0.4 (0.0-1.0) 10^3/uL Eos # (Auto) 0.1 (0.0-0.7) 10^3/uL Baso # (Auto) 0.0 (0.0-0.1) 10^3/uL Absolute Nucleated RBC 0.00 x10^3/uL Nucleated RBC % 0.0 /100WBC Sodium (135-145) mmol/L Potassium (3.5-5.0) mmol/L Chloride (101-111) mmol/L Carbon Dioxide (21-32) mmol/L Anion Gap (6-13) BUN (6-20) mg/dL Creatinine (0.4-1.0) mg/dL Estimated GFR (MDRD) (>89) Glucose (70-100) mg/dL Calcium (8.5-10.3) mg/dL Total Bilirubin (0.2-1.0) mg/dL AST (10-42) IU/L ALT (10-60) IU/L Alkaline Phosphatase (42-121) IU/L Total Protein (6.7-8.2) g/dL Albumin (3.2-5.5) g/dL Globulin (2.1-4.2) g/dL Albumin/Globulin Ratio (1.0-2.2) Lipase (22-51) U/L HCG, Quant mIU/mL Urine Color LT RED Urine Clarity BLOODY (CLEAR) Urine pH 7.5 (5.0-7.5) PH Ur Specific [place] 1.015 (1.002-1.030) Urine Protein 100 H (NEGATIVE) mg/dL Urine Glucose (UA) NEGATIVE (NEGATIVE) mg/dL Urine Ketones NEGATIVE (NEGATIVE) mg/dL Urine Occult Blood LARGE H (NEGATIVE) Urine Nitrite NEGATIVE (NEGATIVE) Urine Bilirubin NEGATIVE (NEGATIVE) Urine Urobilinogen 0.2 (NORMAL) (NORMAL) E.U./dL Ur Leukocyte Esterase TRACE H (NEGATIVE) Urine RBC TNTC H (0-5) /HPF Urine WBC 0-3 (0-5) /HPF Ur Squamous Epith Cells FEW Squamous (<= Few) Urine Bacteria None Seen (None Seen) /HPF Ur Microscopic Review INDICATED Urine Culture Comments INDICATED Nasal Adenovirus (PCR) NOT DETECTED Nasal B. parapertussis DNA (PCR) NOT DETECTED Nasal Coronavir 229E PCR NOT DETECTED Nasal Coronavir HKU1 PCR NOT DETECTED Nasal Coronavir NL63 PCR NOT DETECTED Nasal Coronavir OC43 PCR NOT DETECTED Nasal Enterovir/Rhinovir PCR NOT DETECTED Nasal Influenza B PCR NOT DETECTED Nasal Influenza A PCR NOT DETECTED Nasal Parainfluen 1 PCR NOT DETECTED Nasal Parainfluen 2 PCR NOT DETECTED Nasal Parainfluen 3 PCR NOT DETECTED Nasal Parainfluen 4 PCR NOT DETECTED Nasal RSV (PCR) NOT DETECTED Nasal B.pertussis DNA PCR NOT DETECTED Nasal C.pneumoniae (PCR) NOT DETECTED Helio Human Metapneumo PCR NOT DETECTED Nasal M.pneumoniae (PCR) NOT DETECTED Nasal SARS-CoV-2 (PCR) NOT DETECTED Blood Type Antibody Screen 12/10/20 12/10/20 12/10/20 Range/Units 16:29 16:29 16:29 WBC (4.8-10.8) x10^3/uL RBC (4.20-5.40) 10^6/uL Hgb (12.0-16.0) g/dL Hct (37.0-47.0) % MCV (81.0-99.0) fL MCH (27.0-31.0) pg MCHC (32.0-36.0) g/dL RDW (12.0-15.0) % Plt Count (130-450) 10^3/uL MPV (7.9-10.8) fL Neut # (Auto) (1.5-6.6) 10^3/uL Lymph # (Auto) (1.5-3.5) 10^3/uL [place] # (Auto) (0.0-1.0) 10^3/uL Eos # (Auto) (0.0-0.7) 10^3/uL Baso # (Auto) (0.0-0.1) 10^3/uL Absolute Nucleated RBC x10^3/uL Nucleated RBC % /100WBC Sodium 137 (135-145) mmol/L Potassium 3.4 L (3.5-5.0) mmol/L Chloride 107 (101-111) mmol/L Carbon Dioxide 24 (21-32) mmol/L Anion Gap 6.0 (6-13) BUN 10 (6-20) mg/dL Creatinine 0.7 (0.4-1.0) mg/dL Estimated GFR (MDRD) 95 (>89) Glucose 114 H (70-100) mg/dL Calcium 8.0 L (8.5-10.3) mg/dL Total Bilirubin 0.4 (0.2-1.0) mg/dL AST 13 (10-42) IU/L ALT 14 (10-60) IU/L Alkaline Phosphatase 39 L (42-121) IU/L Total Protein 5.8 L (6.7-8.2) g/dL Albumin 3.6 (3.2-5.5) g/dL Globulin 2.2 (2.1-4.2) g/dL Albumin/Globulin Ratio 1.6 (1.0-2.2) Lipase 37 (22-51) U/L HCG, Quant 2321.00 mIU/mL Urine Color Urine Clarity (CLEAR) Urine pH (5.0-7.5) PH Ur Specific [place] (1.002-1.030) Urine Protein (NEGATIVE) mg/dL Urine Glucose (UA) (NEGATIVE) mg/dL Urine Ketones (NEGATIVE) mg/dL Urine Occult Blood (NEGATIVE) Urine Nitrite (NEGATIVE) Urine Bilirubin (NEGATIVE) Urine Urobilinogen (NORMAL) E.U./dL Ur Leukocyte Esterase (NEGATIVE) Urine RBC (0-5) /HPF Urine WBC (0-5) /HPF Ur Squamous Epith Cells (<= Few) Urine Bacteria (None Seen) /HPF Ur Microscopic Review Urine Culture Comments Nasal Adenovirus (PCR) Nasal B. parapertussis DNA (PCR) Nasal Coronavir 229E PCR Nasal Coronavir HKU1 PCR Nasal Coronavir NL63 PCR Nasal Coronavir OC43 PCR Nasal Enterovir/Rhinovir PCR Nasal Influenza B PCR Nasal Influenza A PCR Nasal Parainfluen 1 PCR Nasal Parainfluen 2 PCR Nasal Parainfluen 3 PCR Nasal Parainfluen 4 PCR Nasal RSV (PCR) Nasal B.pertussis DNA PCR Nasal C.pneumoniae (PCR) [place] Human Metapneumo PCR Nasal M.pneumoniae (PCR) Nasal SARS-CoV-2 (PCR) Blood Type A POSITIVE Antibody Screen NEGATIVE 12/10/20 Range/Units 16:29 WBC 7.6 (4.8-10.8) x10^3/uL RBC 3.89 L (4.20-5.40) 10^6/uL Hgb 11.8 L (12.0-16.0) g/dL Hct 35.0 L (37.0-47.0) % MCV 90.0 (81.0-99.0) fL MCH 30.3 (27.0-31.0) pg MCHC 33.7 (32.0-36.0) g/dL RDW 12.7 (12.0-15.0) % Plt Count 196 (130-450) 10^3/uL MPV 9.1 (7.9-10.8) fL Neut # (Auto) 5.6 (1.5-6.6) 10^3/uL Lymph # (Auto) 1.5 (1.5-3.5) 10^3/uL [place] # (Auto) 0.3 (0.0-1.0) 10^3/uL Eos # (Auto) 0.1 (0.0-0.7) 10^3/uL Baso # (Auto) 0.0 (0.0-0.1) 10^3/uL Absolute Nucleated RBC 0.00 x10^3/uL Nucleated RBC % 0.0 /100WBC Sodium (135-145) mmol/L Potassium (3.5-5.0) mmol/L Chloride (101-111) mmol/L Carbon Dioxide (21-32) mmol/L Anion Gap (6-13) BUN (6-20) mg/dL Creatinine (0.4-1.0) mg/dL Estimated GFR (MDRD) (>89) Glucose (70-100) mg/dL Calcium (8.5-10.3) mg/dL Total Bilirubin (0.2-1.0) mg/dL AST (10-42) IU/L ALT (10-60) IU/L Alkaline Phosphatase (42-121) IU/L Total Protein (6.7-8.2) g/dL Albumin (3.2-5.5) g/dL Globulin (2.1-4.2) g/dL Albumin/Globulin Ratio (1.0-2.2) Lipase (22-51) U/L HCG, Quant mIU/mL Urine Color Urine Clarity (CLEAR) Urine pH (5.0-7.5) PH Ur Specific [place] (1.002-1.030) Urine Protein (NEGATIVE) mg/dL Urine Glucose (UA) (NEGATIVE) mg/dL Urine Ketones (NEGATIVE) mg/dL Urine Occult Blood (NEGATIVE) Urine Nitrite (NEGATIVE) Urine Bilirubin (NEGATIVE) Urine Urobilinogen (NORMAL) E.U./dL Ur Leukocyte Esterase (NEGATIVE) Urine RBC (0-5) /HPF Urine WBC (0-5) /HPF Ur Squamous Epith Cells (<= Few) Urine Bacteria (None Seen) /HPF Ur Microscopic Review Urine Culture Comments Nasal Adenovirus (PCR) Nasal B. parapertussis DNA (PCR) Nasal Coronavir 229E PCR Nasal Coronavir HKU1 PCR Nasal Coronavir NL63 PCR Nasal Coronavir OC43 PCR Nasal Enterovir/Rhinovir PCR Nasal Influenza B PCR Nasal Influenza A PCR Nasal Parainfluen 1 PCR Nasal Parainfluen 2 PCR Nasal Parainfluen 3 PCR Nasal Parainfluen 4 PCR Nasal RSV (PCR) Nasal B.pertussis DNA PCR Nasal C.pneumoniae (PCR) [place] Human Metapneumo PCR Nasal M.pneumoniae (PCR) Nasal SARS-CoV-2 (PCR) Blood Type Antibody Screen
[2020-12-10] MEDS ORDERED: DOXYCYCLINE 100 MG TABLET PO SCH (22:00)
[2020-12-10] MEDS ORDERED: miSOPROStoL 100 MCG TABLET BC SCH (22:00)
[2020-12-10] MEDS ORDERED: TRANEXAMIC ACID 1,000 MG in SODIUM CHLORIDE 0.9% 100ML 100 ML IV SCH (22:00)
[2020-12-10] MEDS: LACTATED RINGERS 1,000 ML IV SCH (22:01)
[2020-12-10] MEDS: oxyCODONE 5 MG TABLET PO PRN (22:02)
[2020-12-10 23:27] LABS: BASOPHILS % (AUTO) 0.2 %; EOSINOPHILS # (AUTO) 0.1 10^3/uL (0.0-0.7); EOSINOPHILS % (AUTO) 0.7 %; HCT - HEMATOCRIT 31.9 % (37.0-47.0); HGB - HEMOGLOBIN 10.7 g/dL (12.0-16.0); LYMPHOCYTES # (AUTO) 1.8 10^3/uL (1.5-3.5); LYMPHOCYTES % (AUTO) 21.5 %; MEAN CORPUSCULAR HEMOGLOBIN 30.1 pg (27.0-31.0); MEAN CORPUSCULAR HGB CONC 33.5 g/dL (32.0-36.0); MEAN CORPUSCULAR VOLUME 89.6 fL (81.0-99.0); MONOCYTES # (AUTO) 0.5 10^3/uL (0.0-1.0); MONOCYTES % (AUTO) 6.2 %; NEUTROPHILS # (AUTO) 5.8 10^3/uL (1.5-6.6); PLT - PLATELET COUNT 197 10^3/uL (130-450); RED BLOOD COUNT 3.56 10^6/uL (4.20-5.40); RED CELL DISTRIBUTION WIDTH 12.5 % (12.0-15.0); WHITE BLOOD COUNT 8.2 x10^3/uL (4.8-10.8)
[2020-12-11] MEDS: METHYLERGONOVINE 0.2 MG/ML VIAL PO SCH ×2 (01:13→06:47)
[2020-12-11] MEDS: CHERRY SYRUP 10 ML UDC PO SCH ×2 (01:13→06:47)
[2020-12-11] MEDS: oxyCODONE 5 MG TABLET PO PRN ×2 (05:55→11:11)
[2020-12-11] MEDS: LACTATED RINGERS 1,000 ML IV SCH (05:55)
[2020-12-11] MEDS ORDERED: LEVOTHYROXINE 125 MCG TABLET PO SCH (07:00)
[2020-12-11] MEDS ORDERED: CYANOCOBALAMIN 1,000 MCG/ML VIAL IM ONE (08:19)
[2020-12-11] MEDS ORDERED: FERRIC GLUCONATE 125 MG in SODIUM CHLORIDE 0.9% 100ML 100 ML IV ONE (09:00)
[2020-12-11 09:04] LABS: BASOPHILS % (AUTO) 0.5 %; EOSINOPHILS % (AUTO) 0.6 %; HCT - HEMATOCRIT 30.7 % (37.0-47.0); HGB - HEMOGLOBIN 10.1 g/dL (12.0-16.0); LYMPHOCYTES # (AUTO) 1.5 10^3/uL (1.5-3.5); LYMPHOCYTES % (AUTO) 23.6 %; MEAN CORPUSCULAR HEMOGLOBIN 29.6 pg (27.0-31.0); MEAN CORPUSCULAR HGB CONC 32.9 g/dL (32.0-36.0); MEAN PLATELET VOLUME 8.9 fL (7.9-10.8); MONOCYTES # (AUTO) 0.4 10^3/uL (0.0-1.0); MONOCYTES % (AUTO) 6.2 %; NEUTROPHILS # (AUTO) 4.4 10^3/uL (1.5-6.6); NEUTROPHILS % (AUTO) 68.8 %; PLT - PLATELET COUNT 144 10^3/uL (130-450); RED BLOOD COUNT 3.41 10^6/uL (4.20-5.40); RED CELL DISTRIBUTION WIDTH 12.8 % (12.0-15.0); WHITE BLOOD COUNT 6.4 x10^3/uL (4.8-10.8)
[2020-12-11 12:46] VITALS: BP 107/66
--- NOTE | 2020-12-11 13:44 | PROVIDER PROGRESS NOTE ---
Subjective - Prog Note Date Prog Note Date: 12/11/20 Prog Note Time: 13:05 Objective - Vital Signs/Intake & Output Vital Signs: Vital Signs x48h Temp Pulse Resp BP Pulse Ox 12/11/20 12:35 98.1 F 82 16 107/66 97 12/11/20 07:36 98.6 F 83 16 99/54 L 98 12/11/20 05:29 97.9 F 98 14 93/48 L 99 Intake & Output: Intake & Output 12/08/20 12/09/20 12/10/20 12/11/20 23:59 23:59 23:59 23:59 Intake Total 1110 1805.833 Balance 1110 1805.833 - Lab Results Fish Bones: 12/11/20 08:50 12/10/20 16:29 Other Labs: Lab Results x24hrs 12/11/20 12/10/20 12/10/20 Range/Units 08:50 23:19 19:08 WBC 6.4 8.2 8.7 (4.8-10.8) x10^3/uL RBC 3.41 L 3.56 L 3.86 L (4.20-5.40) 10^6/uL Hgb 10.1 L 10.7 L 11.6 L (12.0-16.0) g/dL Hct 30.7 L 31.9 L 34.9 L (37.0-47.0) % MCV 90.0 89.6 90.4 (81.0-99.0) fL MCH 29.6 30.1 30.1 (27.0-31.0) pg MCHC 32.9 33.5 33.2 (32.0-36.0) g/dL RDW 12.8 12.5 12.8 (12.0-15.0) % Plt Count 144 197 193 (130-450) 10^3/uL MPV 8.9 9.0 9.1 (7.9-10.8) fL Neut # (Auto) 4.4 5.8 5.8 (1.5-6.6) 10^3/uL Lymph # (Auto) 1.5 1.8 2.4 (1.5-3.5) 10^3/uL [place] # (Auto) 0.4 0.5 0.4 (0.0-1.0) 10^3/uL Eos # (Auto) 0.0 0.1 0.1 (0.0-0.7) 10^3/uL Baso # (Auto) 0.0 0.0 0.0 (0.0-0.1) 10^3/uL Absolute Nucleated RBC 0.00 0.00 0.00 x10^3/uL Nucleated RBC % 0.0 0.0 0.0 /100WBC Sodium (135-145) mmol/L Potassium (3.5-5.0) mmol/L Chloride (101-111) mmol/L Carbon Dioxide (21-32) mmol/L Anion Gap (6-13) BUN (6-20) mg/dL Creatinine (0.4-1.0) mg/dL Estimated GFR (MDRD) (>89) Glucose (70-100) mg/dL Calcium (8.5-10.3) mg/dL Total Bilirubin (0.2-1.0) mg/dL AST (10-42) IU/L ALT (10-60) IU/L Alkaline Phosphatase (42-121) IU/L Total Protein (6.7-8.2) g/dL Albumin (3.2-5.5) g/dL Globulin (2.1-4.2) g/dL Albumin/Globulin Ratio (1.0-2.2) Lipase (22-51) U/L HCG, Quant mIU/mL Urine Color Urine Clarity (CLEAR) Urine pH (5.0-7.5) PH Ur Specific [place] (1.002-1.030) Urine Protein (NEGATIVE) mg/dL Urine Glucose (UA) (NEGATIVE) mg/dL Urine Ketones (NEGATIVE) mg/dL Urine Occult Blood (NEGATIVE) Urine Nitrite (NEGATIVE) Urine Bilirubin (NEGATIVE) Urine Urobilinogen (NORMAL) E.U./dL Ur Leukocyte Esterase (NEGATIVE) Urine RBC (0-5) /HPF Urine WBC (0-5) /HPF Ur Squamous Epith Cells (<= Few) Urine Bacteria (None Seen) /HPF Ur Microscopic Review Urine Culture Comments Nasal Adenovirus (PCR) Nasal B. parapertussis DNA (PCR) Nasal Coronavir 229E PCR Nasal Coronavir HKU1 PCR Nasal Coronavir NL63 PCR Nasal Coronavir OC43 PCR Nasal Enterovir/Rhinovir PCR Nasal Influenza B PCR Nasal Influenza A PCR Nasal Parainfluen 1 PCR Nasal Parainfluen 2 PCR Nasal Parainfluen 3 PCR Nasal Parainfluen 4 PCR Nasal RSV (PCR) Nasal B.pertussis DNA PCR Nasal C.pneumoniae (PCR) [place] Human Metapneumo PCR Nasal M.pneumoniae (PCR) Nasal SARS-CoV-2 (PCR) Blood Type Antibody Screen Crossmatch IS Only 12/10/20 12/10/20 12/10/20 Range/Units 17:36 16:57 16:29 WBC (4.8-10.8) x10^3/uL RBC (4.20-5.40) 10^6/uL Hgb (12.0-16.0) g/dL Hct (37.0-47.0) % MCV (81.0-99.0) fL MCH (27.0-31.0) pg MCHC (32.0-36.0) g/dL RDW (12.0-15.0) % Plt Count (130-450) 10^3/uL MPV (7.9-10.8) fL Neut # (Auto) (1.5-6.6) 10^3/uL Lymph # (Auto) (1.5-3.5) 10^3/uL [place] # (Auto) (0.0-1.0) 10^3/uL Eos # (Auto) (0.0-0.7) 10^3/uL Baso # (Auto) (0.0-0.1) 10^3/uL Absolute Nucleated RBC x10^3/uL Nucleated RBC % /100WBC Sodium (135-145) mmol/L Potassium (3.5-5.0) mmol/L Chloride (101-111) mmol/L Carbon Dioxide (21-32) mmol/L Anion Gap (6-13) BUN (6-20) mg/dL Creatinine (0.4-1.0) mg/dL Estimated GFR (MDRD) (>89) Glucose (70-100) mg/dL Calcium (8.5-10.3) mg/dL Total Bilirubin (0.2-1.0) mg/dL AST (10-42) IU/L ALT (10-60) IU/L Alkaline Phosphatase (42-121) IU/L Total Protein (6.7-8.2) g/dL Albumin (3.2-5.5) g/dL Globulin (2.1-4.2) g/dL Albumin/Globulin Ratio (1.0-2.2) Lipase (22-51) U/L HCG, Quant mIU/mL Urine Color LT RED Urine Clarity BLOODY (CLEAR) Urine pH 7.5 (5.0-7.5) PH Ur Specific [place] 1.015 (1.002-1.030) Urine Protein 100 H (NEGATIVE) mg/dL Urine Glucose (UA) NEGATIVE (NEGATIVE) mg/dL Urine Ketones NEGATIVE (NEGATIVE) mg/dL Urine Occult Blood LARGE H (NEGATIVE) Urine Nitrite NEGATIVE (NEGATIVE) Urine Bilirubin NEGATIVE (NEGATIVE) Urine Urobilinogen 0.2 (NORMAL) (NORMAL) E.U./dL Ur Leukocyte Esterase TRACE H (NEGATIVE) Urine RBC TNTC H (0-5) /HPF Urine WBC 0-3 (0-5) /HPF Ur Squamous Epith Cells FEW Squamous (<= Few) Urine Bacteria None Seen (None Seen) /HPF Ur Microscopic Review INDICATED Urine Culture Comments INDICATED Nasal Adenovirus (PCR) NOT DETECTED Nasal B. parapertussis DNA (PCR) NOT DETECTED Nasal Coronavir 229E PCR NOT DETECTED Nasal Coronavir HKU1 PCR NOT DETECTED Nasal Coronavir NL63 PCR NOT DETECTED Nasal Coronavir OC43 PCR NOT DETECTED Nasal Enterovir/Rhinovir PCR NOT DETECTED Nasal Influenza B PCR NOT DETECTED Nasal Influenza A PCR NOT DETECTED Nasal Parainfluen 1 PCR NOT DETECTED Nasal Parainfluen 2 PCR NOT DETECTED Nasal Parainfluen 3 PCR NOT DETECTED Nasal Parainfluen 4 PCR NOT DETECTED Nasal RSV (PCR) NOT DETECTED Nasal B.pertussis DNA PCR NOT DETECTED Nasal C.pneumoniae (PCR) NOT DETECTED [place] Human Metapneumo PCR NOT DETECTED Nasal M.pneumoniae (PCR) NOT DETECTED Nasal SARS-CoV-2 (PCR) NOT DETECTED Blood Type A POSITIVE Antibody Screen NEGATIVE Crossmatch IS Only See Detail 12/10/20 12/10/20 12/10/20 Range/Units 16:29 16:29 16:29 WBC 7.6 (4.8-10.8) x10^3/uL RBC 3.89 L (4.20-5.40) 10^6/uL Hgb 11.8 L (12.0-16.0) g/dL Hct 35.0 L (37.0-47.0) % MCV 90.0 (81.0-99.0) fL MCH 30.3 (27.0-31.0) pg MCHC 33.7 (32.0-36.0) g/dL RDW 12.7 (12.0-15.0) % Plt Count 196 (130-450) 10^3/uL MPV 9.1 (7.9-10.8) fL Neut # (Auto) 5.6 (1.5-6.6) 10^3/uL Lymph # (Auto) 1.5 (1.5-3.5) 10^3/uL [place] # (Auto) 0.3 (0.0-1.0) 10^3/uL Eos # (Auto) 0.1 (0.0-0.7) 10^3/uL Baso # (Auto) 0.0 (0.0-0.1) 10^3/uL Absolute Nucleated RBC 0.00 x10^3/uL Nucleated RBC % 0.0 /100WBC Sodium 137 (135-145) mmol/L Potassium 3.4 L (3.5-5.0) mmol/L Chloride 107 (101-111) mmol/L Carbon Dioxide 24 (21-32) mmol/L Anion Gap 6.0 (6-13) BUN 10 (6-20) mg/dL Creatinine 0.7 (0.4-1.0) mg/dL Estimated GFR (MDRD) 95 (>89) Glucose 114 H (70-100) mg/dL Calcium 8.0 L (8.5-10.3) mg/dL Total Bilirubin 0.4 (0.2-1.0) mg/dL AST 13 (10-42) IU/L ALT 14 (10-60) IU/L Alkaline Phosphatase 39 L (42-121) IU/L Total Protein 5.8 L (6.7-8.2) g/dL Albumin 3.6 (3.2-5.5) g/dL Globulin 2.2 (2.1-4.2) g/dL Albumin/Globulin Ratio 1.6 (1.0-2.2) Lipase 37 (22-51) U/L HCG, Quant 2321.00 mIU/mL Urine Color Urine Clarity (CLEAR) Urine pH (5.0-7.5) PH Ur Specific [place] (1.002-1.030) Urine Protein (NEGATIVE) mg/dL Urine Glucose (UA) (NEGATIVE) mg/dL Urine Ketones (NEGATIVE) mg/dL Urine Occult Blood (NEGATIVE) Urine Nitrite (NEGATIVE) Urine Bilirubin (NEGATIVE) Urine Urobilinogen (NORMAL) E.U./dL Ur Leukocyte Esterase (NEGATIVE) Urine RBC (0-5) /HPF Urine WBC (0-5) /HPF Ur Squamous Epith Cells (<= Few) Urine Bacteria (None Seen) /HPF Ur Microscopic Review Urine Culture Comments Nasal Adenovirus (PCR) Nasal B. parapertussis DNA (PCR) Nasal Coronavir 229E PCR Nasal Coronavir HKU1 PCR Nasal Coronavir NL63 PCR Nasal Coronavir OC43 PCR Nasal Enterovir/Rhinovir PCR Nasal Influenza B PCR Nasal Influenza A PCR Nasal Parainfluen 1 PCR Nasal Parainfluen 2 PCR Nasal Parainfluen 3 PCR Nasal Parainfluen 4 PCR Nasal RSV (PCR) Nasal B.pertussis DNA PCR Nasal C.pneumoniae (PCR) [place] Human Metapneumo PCR Nasal M.pneumoniae (PCR) Nasal SARS-CoV-2 (PCR) Blood Type Antibody Screen Crossmatch IS Only
== END 2020-12-11 12:25 | disposition home or self-care (01) ==
LOC: EDUNIT# → EDBD → ED 16:04 → SDS 17:16 → MS2 20:00 → SDS 12-11 12:25
PROVIDERS: ATTEND Obstetrics & Gynecology
PROC: 10D17ZZ Extraction of Products of Conception, Retained, Via Natural or Artificial Opening (ICD-10-PCS; principal; 2020-12-10 18:00)
DX: O03.1 Delayed or excessive hemorrhage following incomplete spontaneous abortion (principal); E06.3 Autoimmune thyroiditis; Z20.822 Contact with and (suspected) exposure to COVID-19; Z79.899 Other long term (current) drug therapy
CPT/HCPCS: 0202U; 36415; 59812; 80053; 81001; 83690; 84702; 85025; 86850; 86900; 86901; 86920; 87086; 96374; 99284; 99285; A9270; J2210; J2916; J7120; 81003

== ENCOUNTER 2020-12-12 15:44 | Emergency (ER) | payer OTHER ==
[2020-12-12 16:34] LABS: BASOPHILS % (AUTO) 0.5 %; EOSINOPHILS # (AUTO) 0.1 10^3/uL (0.0-0.7); EOSINOPHILS % (AUTO) 1.4 %; HCT - HEMATOCRIT 33.6 % (37.0-47.0); HGB - HEMOGLOBIN 10.4 g/dL (12.0-16.0); LYMPHOCYTES # (AUTO) 1.9 10^3/uL (1.5-3.5); MEAN CORPUSCULAR HEMOGLOBIN 29.3 pg (27.0-31.0); MEAN CORPUSCULAR VOLUME 94.6 fL (81.0-99.0); MEAN PLATELET VOLUME 9.8 fL (7.9-10.8); MONOCYTES # (AUTO) 0.3 10^3/uL (0.0-1.0); MONOCYTES % (AUTO) 4.4 %; NEUTROPHILS # (AUTO) 3.4 10^3/uL (1.5-6.6); NEUTROPHILS % (AUTO) 59.3 %; PLT - PLATELET COUNT 182 10^3/uL (130-450); RED BLOOD COUNT 3.55 10^6/uL (4.20-5.40); RED CELL DISTRIBUTION WIDTH 12.6 % (12.0-15.0); WHITE BLOOD COUNT 5.7 x10^3/uL (4.8-10.8)
[2020-12-12 16:50] LABS: ALBUMIN 3.9 g/dL (3.2-5.5); ALBUMIN/GLOBULIN RATIO 1.5 (1.0-2.2); BILIRUBIN,TOTAL 0.8 mg/dL (0.2-1.0); CALCIUM 8.6 mg/dL (8.5-10.3); CREATININE 0.8 mg/dL (0.4-1.0); POTASSIUM 3.7 mmol/L (3.5-5.0); TOTAL PROTEIN 6.5 g/dL (6.7-8.2)
[2020-12-12] MEDS ORDERED: SODIUM CHLORIDE 0.9% 1,000 ML IV STA (16:58)
[2020-12-12] MEDS ORDERED: PROCHLORPERAZINE 10 MG/2 ML VIAL IVP STA (16:58)
[2020-12-12] MEDS ORDERED: diphenhydrAMINE INJ 50 MG/ML VIAL IVP STA (16:58)
--- NOTE | 2020-12-12 17:09 | ED Physician Documentation ---
History of Present Illness - Stated complaint Stated Complaint: LOW BP - Chief complaint Chief Complaint: Abd Pain - Additonal information Additional information: 35-year-old female presents the emergency department for evaluation Of a persi stent headache of greater than 1 week duration. She unfortunately had an incomplete SAB on Friday and required emergent surgery due to heavy vaginal bleeding. However patient reports that she had this headache before going to surgery. She is had no falls or trauma. No fevers. Reports that her head hurts anytime she moves it. She does have a history of migraines that had associated smell light and noise sensitivity. This headache feels different from others though she does have some photophobia. She has been taking ibuprofen, Tylenol as well as oxycodone prescribed after her D&C for the headache without relief of symptoms. Some nausea no vomiting. No abdominal pain. She does report she continues to have period like vaginal bleeding. Review of Systems Constitutional: denies: Fever, Chills Eyes: reports: Photophobia. denies: Loss of vision Ears: reports: Reviewed and negative Nose: reports: Reviewed and negative Throat: reports: Reviewed and negative Cardiac: denies: Chest pain / pressure, Palpitations Respiratory: denies: Dyspnea, Cough GI: reports: Nausea. denies: Vomiting, Constipation, Diarrhea : reports: Vaginal bleeding Skin: denies: Rash, Lesions Musculoskeletal: denies: Neck pain, Back pain Neurologic: reports: Headache. 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 : None HEENT: None Psych: None Musculoskeletal: None Derm: None - Past Surgical History Past Surgical History: Yes HEENT: Tonsil/Adenoidectomy - Present Medications Home Medications: Ambulatory Orders Medication Instructions Recorded Confirmed Acetaminophen [Acetaminophen Extra 1,000 mg PO Q8H PRN #60 tablet 12/10/20 12/12/20 Strength] Docusate Sodium 100Mg Capsule 100 - 200 mg PO BID PRN #60 cap 12/10/20 12/12/20 [Colace 100Mg Capsule] Ibuprofen [Motrin] 600 mg PO Q6H PRN #60 tab 12/10/20 12/12/20 Levothyroxine Sodium [Synthroid] 150 mcg PO QDAC 12/10/20 12/12/20 Ibuprofen [Motrin] 600 mg PO Q6H PRN #60 tab 12/11/20 12/12/20 oxyCODONE [Roxicodone] 2.5 - 5 mg PO Q4H PRN #24 tablet 12/11/20 12/12/20 - Allergies Allergies/Adverse Reactions: Allergies Allergy/AdvReac Type Severity Reaction Status Date / Time No Known Drug Allergies Allergy Verified 12/12/20 16:03 - Social History Does the pt smoke?: No Smoking Status: Never smoker Does the pt drink ETOH?: Yes Does the pt have substance abuse?: No - Immunizations Immunizations are current?: Yes - POLST Patient has POLST: No PD ED PE EXPANDED - General General: Alert, No acute distress, Well developed/nourished - HEENT HEENT: PERRL, Ears normal, Moist mucous membranes - Neck Neck: Supple w/out meningeal sx, No tenderness. No: Adenopathy - Cardiac Cardiac: Regular Rate, Radial strong equal, Pedal strong equal, Cap refill < 2 sec. No: Murmur Present - Respiratory Respiratory: Clear to ausultation maddie. No: Distress, Labored - Abdomen Abdomen: Normal Bowel sounds. No: Tender to palpation - Extremities Extremities: Normal. No: Deformity, Tenderness - Neuro Neuro: Alert and Oriented X 3, CNII-XII intact, Cerebellar nl, Normal gait, Normal finger nose, Normal speech. No: Nystagmus - GCS Eye Opening: Spontaneous Motor: Obeys Commands Verbal: Oriented Total: 15 Results - Vitals Vitals: Vital Signs - 24 hr 12/12/20 12/12/20 12/12/20 15:58 16:03 18:03 Temperature 36.4 C L Heart Rate 82 71 64 Respiratory 17 16 16 Rate Blood Pressure 130/80 116/62 98/63 O2 Saturation 99 99 99 Oxygen O2 Source Room air - Labs Labs: Laboratory Tests 12/12/20 12/12/20 12/12/20 16:30 16:30 17:23 WBC 5.7 RBC 3.55 L Hgb 10.4 L Hct 33.6 L MCV 94.6 MCH 29.3 MCHC 31.0 L RDW 12.6 Plt Count 182 MPV 9.8 Neut # (Auto) 3.4 Lymph # (Auto) 1.9 [place] # (Auto) 0.3 Eos # (Auto) 0.1 Baso # (Auto) 0.0 Absolute Nucleated RBC 0.00 Nucleated RBC % 0.0 Sodium 137 Potassium 3.7 Chloride 106 Carbon Dioxide 20 L Anion Gap 11.0 BUN 9 Creatinine 0.8 Estimated GFR (MDRD) 82 L Glucose 79 Calcium 8.6 Total Bilirubin 0.8 AST 18 ALT 14 Alkaline Phosphatase 45 Total Protein 6.5 L Albumin 3.9 Globulin 2.6 Albumin/Globulin Ratio 1.5 Lipase 31 Urine Color LT RED Urine Clarity SL. CLOUDY Urine pH 5.5 Ur Specific [place] 1.015 Urine Protein NEGATIVE Urine Glucose (UA) NEGATIVE Urine Ketones 40 H Urine Occult Blood LARGE H Urine Nitrite NEGATIVE Urine Bilirubin NEGATIVE Urine Urobilinogen 0.2 (NORMAL) Ur Leukocyte Esterase SMALL H Urine RBC TNTC H Urine WBC 4-5 Ur Squamous Epith Cells FEW Squamous Urine Bacteria Rare Ur Microscopic Review INDICATED Urine Culture Comments INDICATED - Rads (name of study) CT head Radiology: Final report received (No intracranial hemorrhage or mass is seen, no signs of ventriculomegaly. The study is performed without contrast and depending on the clinical status follow-up by dural venous thrombosis evaluation may be warranted by contrast enhanced CT or MRI scanning.) CT head with contrast Radiology: Final report received PD MEDICAL DECISION MAKING - ED course Complexity details: reviewed results, re-evaluated patient, considered differential, d/w patient ED course: 35-year-old female presented to the ER for evaluation and treatment of her headache that she has had for well over 1 week. This is in the setting of a recent incomplete miscarriage for which she had did go to the operating room emergently 48 hours ago due to heavy vaginal bleeding. She has had no fevers and no focal neuro findings. She did report a history of migraines but stated that this headache felt distinctly different. Here in the emergency department screening labs revealed anemia which is somewhat improved from when she was discharged from the hospital no electrolyte abnormalities. Her urine does have blood in it consistent with the recent D&C. She has no fevers or meningismus. She did not receive an epidural while hospitalized. The CT of her head both with and without contrast showed no acute intracranial findings, specifically no dural venous sinus thrombosis. Patient was given IV fluids, Benadryl and Compazine which did not initially improve the headache. It was then followed by 1 mg of Dilaudid which did markedly improve her symptoms. However it should be noted she has been taking Percocet at home after her D&C which had not improved her headache. However at this time she appears improved and feels safe for discharge home. Emergent return precautions were discussed Departure - Departure Disposition: 01 Home, Self Care Clinical Impression: Headache Qualifiers: Headache type: other headache syndrome Qualified Code(s): G44.89 - Other headache syndrome Condition: Stable Record reviewed to determine appropriate education?: Yes Comments: Livia maddox were seen today in the ER for a headache that you have had since before you had your miscarriage. Your screening labs today did not show any worrisome abnormalities. You are not anemic, your hemoglobin is 10.4 but this is somewhat improved from when you were discharged from the hospital. The CT of your head both with and without contrast did not show any worrisome findings. Specifically no blood clot or dural venous sinus thrombosis. You were given a liter of IV fluid as well as antinausea multiple other medications to improve your headache. Your headache has begun to improve. I do recommend that you get plenty of rest over the next 24 hours continue to take the medications you have at home. If at any point you develop fevers, the headache worsens you have uncontrolled vomiting please return to the ER for a second look.
--- NOTE | 2020-12-12 17:21 | CT Report ---
PROCEDURE: HEAD WO INDICATIONS: headache TECHNIQUE: Noncontrast 4.5 mm thick angled axial sections acquired from the foramen magnum to the vertex. For r adiation dose reduction, the following was used: automated exposure control, adjustment of mA and/or kV according to patient size. COMPARISON: None. FINDINGS: Image quality: Repeat scanning was necessary due to patient motion during image acquisition resulting in motion artifact causing high density near the temporal lobes. On delayed scanning this artifact r esolves and intracranial hemorrhage is not suspected.. CSF spaces: Basal cisterns are patent. No extra-axial fluid collections. Ventricles are normal in size and shape. Brain: No midline shift. No intracranial masses or hemorrhage. Reinoso-white matter interface is norm al. Skull and face: Calvarium and visualized facial bones are intact, without suspicious lesions. Sinuses: Visualized sinuses and mastoids are clear. IMPRESSION: No intracranial hemorrhage or mass is seen, no sign of ventriculomegaly. The study is pe rformed without contrast, and depending on the clinical status follow-up by dural venous thrombosis e valuation may be warranted by contrast-enhanced CT or MR scanning. Reviewed by: Quinton Ortiz MD on 12/12/2020 5:20 PM PDT Approved by: Quinton Ortiz MD on 12/12/2020 5:20 PM PDT Station ID: [id number]
[2020-12-12 17:29] LABS: BILIRUBIN,URINE NEGATIVE (NEGATIVE); GLUCOSE, URINE (UA) NEGATIVE (NEGATIVE); KETONES,URINE (UA) 40 mg/dL (NEGATIVE); LEUKOCYTE ESTERASE, URINE SMALL (NEGATIVE); NITRITE,URINE NEGATIVE (NEGATIVE); OCCULT BLOOD,URINE LARGE (NEGATIVE); PH,URINE 5.5 PH (5.0-7.5); PROTEIN,URINE NEGATIVE (NEGATIVE); UROBILINOGEN,URINE 0.2 (NORMAL) E.U./dL (NORMAL)
[2020-12-12 17:30] LABS: CLARITY,URINE SL. CLOUDY (CLEAR)
[2020-12-12 17:34] LABS: BACTERIA,URINE Rare /HPF (None Seen); RBC,URINE TNTC /HPF (0-5); SQUAMOUS EPITHELIAL CELL,UR FEW Squamous (<= Few)
[2020-12-12] MEDS ORDERED: HYDROmorphone 1 MG/ML CARPUJECT IVP STA (17:36)
[2020-12-12] MEDS ORDERED: ONDANSETRON 4 MG/2 ML VIAL IVP STA (17:36)
[2020-12-12] MEDS ORDERED: IOVERSOL 320 100 ML VIAL IVP ONE (18:17)
--- NOTE | 2020-12-12 18:27 | CT Report ---
PROCEDURE: HEAD W INDICATIONS: headache. Recent miscarriage and surgery CONTRAST: IV CONTRAST: Optiray 320 ml: 100 PO CONTRAST: *NO PO CONTRAST TECHNIQUE: 4.5 mm thick angled axial sections acquired from the foramen magnum to the vertex after the administr ation of intravenous contrast. For radiation dose reduction, the following was used: automated expo sure control, adjustment of mA and/or kV according to patient size. COMPARISON: CT brain same day FINDINGS: Image quality: Excellent. CSF Spaces: Basal cisterns are patent. No extra-axial fluid collections. Ventricles are normal in size and shape. Brain: No midline shift. No intracranial bleeds or masses. No abnormal intracranial enhancement. Reinoso-white interface appears normal. Dural venous sinuses are unremarkable Skull and face: Calvarium and visualized facial bones appear intact, without suspicious lesions. Sinuses: Visualized sinuses and mastoids are clear. IMPRESSION: Unremarkable contrast CT brain. No evidence of dural venous thrombosis Reviewed by: Grayson Gomez MD on 12/12/2020 5:25 PM AKDT Approved by: Grayson Gomez MD on 12/12/2020 5:25 PM AKDT Station ID: [id number]
[2020-12-12 19:19] VITALS: BP 100/62
== END 2020-12-12 19:19 | disposition home or self-care (01) ==
LOC: ED 15:44
DX: G44.89 Other headache syndrome (principal); D64.9 Anemia, unspecified; Z98.890 Other specified postprocedural states
CPT/HCPCS: 36415; 70450; 70460; 80053; 81001; 83690; 85025; 87086; 96361; 96374; 96375; 99284; 99285; J1170; J1200; Q9967; 81003

== ENCOUNTER 2021-01-02 15:42 | Outpatient (CLI) | payer OTHER ==
--- NOTE | 2021-01-03 12:01 | XRAY Report ---
PROCEDURE: Ankle 3 View LT INDICATIONS: SPRAIN OF LIGAMENT OF L ANKLE TECHNIQUE: 3 views of the ankle were acquired. COMPARISON: Ankle plain films on the left 09/28/2020 FINDINGS: Bones: No fractures or dislocations. Ankle mortise is normally aligned. No suspicious bony lesions . Soft tissues: No tibiotalar joint effusion. Achilles tendon appears normal. IMPRESSION: No trauma found, no soft tissue swelling or subluxations. Reviewed by: Quinton Ortiz MD on 01/03/2021 11:59 AM PDT Approved by: Quinton Ortiz MD on 01/03/2021 11:59 AM PDT Station ID: [id number]
== END 2021-01-02 23:59 | disposition home or self-care (01) ==
LOC: DI.N 15:42
PROVIDERS: ATTEND Physician Assistant
DX: S93.402A Sprain of unspecified ligament of left ankle, initial encounter (principal)

== ENCOUNTER 2021-01-22 09:24 | Outpatient (CLI) | payer OTHER ==
[2021-01-22 09:46] LABS: HCT - HEMATOCRIT 35.3 % (37.0-47.0); MEAN CORPUSCULAR HEMOGLOBIN 27.1 pg (27.0-31.0); MEAN CORPUSCULAR HGB CONC 31.2 g/dL (32.0-36.0); MEAN CORPUSCULAR VOLUME 86.9 fL (81.0-99.0); MEAN PLATELET VOLUME 8.9 fL (7.9-10.8); RED BLOOD COUNT 4.06 10^6/uL (4.20-5.40); RED CELL DISTRIBUTION WIDTH 13.1 % (12.0-15.0); WHITE BLOOD COUNT 4.5 x10^3/uL (4.8-10.8)
[2021-01-22 10:05] LABS: % IRON SATURATION 6 % (20-50); IRON 27 ug/dL (28-170); TOTAL IRON BINDING CAPACITY 458 ug/dL (250-450); TRANSFERRIN 327 mg/dL (192-382)
[2021-01-22 10:17] LABS: THYROID STIMULATING HORMONE 1.18 uIU/mL (0.34-5.60)
[2021-01-22 10:20] LABS: FREE T4 (FREE THYROXINE) 1.04 ng/dL (0.58-1.64)
[2021-01-22 10:23] LABS: FERRITIN 4.9 ng/mL (11.0-306.8)
[2021-01-22 11:29] LABS: ESTIMATED AVERAGE GLUCOSE 91 mg/dL (70-100); HEMOGLOBIN A1c% 4.8 % (4.27-6.07)
== END 2021-01-22 09:25 | disposition home or self-care (01) ==
LOC: LAB 09:24
PROVIDERS: ATTEND Obstetrics & Gynecology
DX: E06.3 Autoimmune thyroiditis (principal); D62 Acute posthemorrhagic anemia; R53.83 Other fatigue; Z13.1 Encounter for screening for diabetes mellitus
CPT/HCPCS: 36415; 82728; 83036; 83540; 84439; 84443; 84466; 85027